=== PATIENT | male | born 1990 | race Caucasian/White ===

== ENCOUNTER 2021-09-30 20:34 | Inpatient (IN) ==
[2021-10-01] MEDS: Acetaminophen 325 MG TABLET PO PRN ×3 (00:41→21:57)
[2021-10-01 01:12] LABS: Bacteria,Urine Few per hpf (None-Few); Bilirubin,Urine Negative (Negative); Blood,Urine Moderate (Negative); Clarity,Urine Clear (Clear); Color,Urine Light-Yellow (Yellow); Glucose,Urine (UA) Normal (Normal); Ketones,Urine Negative (Negative); Leukocyte Esterase,Urine Negative (Negative); Mucus,Urine Few per lpf (None-Few); Nitrite,Urine Negative (Negative); Protein,Urine Negative (Neg-Trace); RBC,Urine 0-3 per hpf (0-3); Urobilinogen,Urine Normal (Normal); WBC,Urine 0-3 per hpf (0-3)
[2021-10-01 01:16] LABS: Eosinophils % 0.1 %; Hematocrit 19.5 % (37.5-50.1); Hemoglobin 6.6 g/dL (12.9-16.9); Immature Granulocytes % 0.7 % (0-4); Immature Platelets 7.4 % (1.1-6.1); Lymphocytes # 0.3 K/mcL (0.6-4.6); Lymphocytes % 4.2 %; Mean Corpuscular HGB Conc 33.8 g/dL (31.6-35.5); Mean Corpuscular Hemoglobin 28.3 pg (28.0-33.3); Mean Corpuscular Volume 83.7 fL (83.0-100.0); Mean Platelet Volume 11.1 fL (9.4-12.4); Monocytes # 0.5 K/mcL (0.0-1.3); Monocytes % 7.1 %; Neutrophils # 6.1 K/mcL (1.6-8.9); Red Blood Count 2.33 M/mcL (4.19-5.50); Red Cell Distribution Width 15.9 % (11.5-14.5); Segmented Neutrophils % 87.9 %; White Blood Count 6.9 K/mcL (4.3-11.1)
[2021-10-01 01:18] LABS: Platelet Count 82 K/mcL (140-400)
[2021-10-01 01:20] LABS: Sodium, Urine 33.5 mEq/L
[2021-10-01 01:30] LABS: Creatinine,Urine 41 mg/dL
[2021-10-01 01:34] LABS: Alanine Aminotransferase 56 Units/L (7-52); Albumin 2.5 g/dL (3.5-5.7); Albumin/Globulin Ratio 0.5 (1.1-2.2); Alkaline Phosphatase 75 Units/L (34-104); Aspartate Amino Transferase 85 Units/L (13-39); BUN/Creatinine Ratio 32 (6-26); Bilirubin,Total 0.8 mg/dL (0.3-1.0); Blood Urea Nitrogen 26 mg/dL (6-20); Calcium 7.7 mg/dL (8.6-10.3); Carbon Dioxide 27 mEq/L (23-29); Chloride 87 mEq/L (98-107); Globulin 4.6 g/dL (2.4-3.5); Glucose 90 mg/dL (70-105); Osmolality,Calculated 260 (280-300); Potassium 2.9 mEq/L (3.5-5.1); Sodium 123 mEq/L (136-145); Total Protein 7.1 g/dL (6.4-8.9); eGFR For African Americans > 60 (> 60); eGFR For Non-African Americans > 60 (> 60)
[2021-10-01 01:34] LABS: Amphetamine Screen,Urine Negative ng/mL (Cutoff=1000); Barbiturate Screen,Urine Negative ng/mL (Cutoff=200); Benzodiazepines Screen,Urine Negative ng/mL (Cutoff=200); Cannabinoid Screen,Urine Negative ng/mL (Cutoff = 50); Cocaine Screen,Urine Negative ng/mL (Cutoff= 300); Opiate Screen,Urine Positive ng/mL (Cutoff=300); Phencyclidine Screen,Urine Negative ng/mL (Cutoff=25)
[2021-10-01 01:35] LABS: INR 1.5; Prothrombin Time 16.6 Seconds (9.4-12.1)
[2021-10-01 01:37] LABS: Activated Partial Thrombo Time 26.2 Seconds (26.0-36.0)
[2021-10-01] MEDS ORDERED: Potassium Chloride Elixir 20 MEQ/15 ML UDC PO ONE (02:05)
[2021-10-01 02:06] LABS: Adenovirus Not Detected (Not Detect); Bordetella Pertussis Not Detected (Not Detect); Chlamydophila pneumoniae Not Detected (Not Detect); Coronavirus 229E Not Detected (Not Detect); Coronavirus HKU1 Not Detected (Not Detect); Coronavirus NL63 Not Detected (Not Detect); Coronavirus OC43 Not Detected (Not Detect); Human Metapneumovirus Not Detected (Not Detect); Human Rhinovirus/Enterovirus Not Detected (Not Detect); Influenza A Subtype 2009 H1 Not Detected (Not Detect); Influenza B Not Detected (Not Detect); Mycoplasma pneumoniae Not Detected (Not Detect); Parainfluenza Virus 1 Not Detected (Not Detect); Parainfluenza Virus 2 Not Detected (Not Detect); Parainfluenza Virus 3 Not Detected (Not Detect); Parainfluenza Virus 4 Not Detected (Not Detect); Respiratory Syncytial Virus Not Detected (Not Detect); SARS-CoV-2 Not Detected (Not Detect)
[2021-10-01] MEDS ORDERED: Ringers Solution, Lactated 1,000 ML IVC SCH (02:15)
[2021-10-01] MEDS ORDERED: 0.9 % Sodium Chloride 1,000 ML IVC SCH ×2 (02:15→05:17)
[2021-10-01 02:20] LABS: Magnesium 1.6 mg/dL (1.6-2.6); Phosphorous 1.7 mg/dL (2.7-4.5)
[2021-10-01] MEDS ORDERED: Perflutren Lipid Microsphere 1.3 ML in 0.9 % Sodium Chloride 8.7 ML IVP PRN ×2 (02:46→05:20)
[2021-10-01 02:57] LABS: Protein/Creatinine Ratio,Urine 0.32 mg/mg (0.00-0.20)
[2021-10-01] MEDS ORDERED: 0.9 % Sodium Chloride 250 ML ONE ×2 (02:57→12:23)
[2021-10-01] MEDS ORDERED: Piperacillin/Tazobactam 3.375 GM in 0.9 % Sodium Chloride Mini Bag 100 ML IVPB SCH ×2 (06:00→14:00)
[2021-10-01 07:41] LABS: Hemoglobin 6.6 g/dL (12.9-16.9)
[2021-10-01 07:43] LABS: Hematocrit 19.2 % (37.5-50.1); Immature Platelets 9.8 % (1.1-6.1); Mean Corpuscular HGB Conc 34.4 g/dL (31.6-35.5); Mean Corpuscular Hemoglobin 28.7 pg (28.0-33.3); Mean Corpuscular Volume 83.5 fL (83.0-100.0); Mean Platelet Volume 10.7 fL (9.4-12.4); Red Cell Distribution Width 15.8 % (11.5-14.5); Retculocyte # 0.01 M/mcL (0.05-0.10); Reticulocyte % 0.5 % (1.6-2.8); White Blood Count 7.2 K/mcL (4.3-11.1)
[2021-10-01 08:13] LABS: Platelet Count 68 K/mcL (140-400)
[2021-10-01] MEDS: Ipratropium/Albuterol Neb 3 ML IH SCH ×5 (08:15→23:29)
[2021-10-01 08:20] LABS: Immature Granulocytes % 2.4 % (0-4); Lymphocytes % 5.9 %
[2021-10-01 08:22] LABS: Basophils % 0.1 %; Eosinophils % 0.3 %; Lymphocytes # 0.4 K/mcL (0.6-4.6); Monocytes # 0.8 K/mcL (0.0-1.3); Monocytes % 11.2 %; Neutrophils # 5.8 K/mcL (1.6-8.9); Segmented Neutrophils % 80.1 %
[2021-10-01 08:32] LABS: BUN/Creatinine Ratio 37 (6-26); Blood Urea Nitrogen 22 mg/dL (6-20); Calcium 7.8 mg/dL (8.6-10.3); Carbon Dioxide 26 mEq/L (23-29); Chloride 90 mEq/L (98-107); Cholesterol 60 mg/dL (< 200); Ferritin 736 ng/mL (20-250); Glucose 121 mg/dL (70-105); HDL Cholesterol < 3 mg/dL (40-59); Iron < 10 mcg/dL (65-175); Magnesium 1.8 mg/dL (1.6-2.6); Osmolality,Calculated 261 (280-300); Phosphorous 2.5 mg/dL (2.7-4.5); Potassium 3.8 mEq/L (3.5-5.1); Sodium 123 mEq/L (136-145); Thyroid Stimulating Hormone 1.672 mcIU/mL (0.340-5.600); Transferrin 158 mg/dL (203-362); Triglycerides 144 mg/dL (< 150); eGFR For African Americans > 60 (> 60); eGFR For Non-African Americans > 60 (> 60)
[2021-10-01 09:11] LABS: C-Reactive Protein 191 mg/L (Less than 10)
[2021-10-01 09:20] LABS: Mean Platelet Volume 11.2 fL (9.4-12.4)
[2021-10-01 09:31] LABS: INR 1.4; Prothrombin Time 15.8 Seconds (9.4-12.1)
[2021-10-01 09:33] LABS: Activated Partial Thrombo Time 30.7 Seconds (26.0-36.0)
[2021-10-01 10:04] LABS: Folate 5.2 ng/mL (3.0-16.0)
[2021-10-01 10:05] LABS: Vitamin B12 440 pg/mL (250-1100)
[2021-10-01 10:08] LABS: BUN/Creatinine Ratio 33 (6-26); Blood Urea Nitrogen 20 mg/dL (6-20); Calcium 7.6 mg/dL (8.6-10.3); Carbon Dioxide 27 mEq/L (23-29); Chloride 90 mEq/L (98-107); Glucose 110 mg/dL (70-105); Osmolality,Calculated 259 (280-300); Potassium 3.3 mEq/L (3.5-5.1); Sodium 123 mEq/L (136-145); eGFR For African Americans > 60 (> 60); eGFR For Non-African Americans > 60 (> 60)
[2021-10-01 10:21] LABS: Hematocrit 17.9 % (37.5-50.1); Immature Platelets 11.3 % (1.1-6.1); Mean Corpuscular HGB Conc 33.5 g/dL (31.6-35.5); Mean Corpuscular Hemoglobin 28.4 pg (28.0-33.3); Mean Corpuscular Volume 84.8 fL (83.0-100.0); Mean Platelet Volume 11.4 fL (9.4-12.4); Red Blood Count 2.11 M/mcL (4.19-5.50); Red Cell Distribution Width 15.9 % (11.5-14.5); White Blood Count 6.2 K/mcL (4.3-11.1)
[2021-10-01 11:10] LABS: Hepatitis B Surface Antigen Nonreactive (Nonreactive)
[2021-10-01 11:39] LABS: HIV-1&2 Antibody & p24 Ag Nonreactive (Nonreactive)
[2021-10-01 11:40] LABS: Hepatitis A Antibody IgM Nonreactive (Nonreactive); Hepatitis B Core IgM Nonreactive (Nonreactive)
[2021-10-01 11:48] LABS: Complement C3 123 mg/dL (87-200)
[2021-10-01] MEDS ORDERED: Naloxone 0.4 MG/ML INJ ONE ×2 (12:07→13:15)
[2021-10-01] MEDS: Naloxone 0.4 MG/ML INJ IVP PRN (12:16)
[2021-10-01] MEDS ORDERED: Naloxone 0.4 MG/ML INJ IVP ONE (13:19)
[2021-10-01] MEDS ORDERED: Ringers Solution, Lactated 500 ML IVC ONE (14:33)
[2021-10-01 14:55] LABS: mecA Methicillin-Resist Gene DETECTED (Not Detect)
[2021-10-01 14:56] LABS: Acinetobacter baumannii by PCR Not Detected (Not Detect); Candida albicans by PCR Not Detected (Not Detect); Candida glabrata by PCR Not Detected (Not Detect); Candida krusei by PCR Not Detected (Not Detect); Candida parapsilosis by PCR Not Detected (Not Detect); Candida tropicalis by PCR Not Detected (Not Detect); Enterobacter cloacae Cmplx PCR Not Detected (Not Detect); Enterobacteriaceae by PCR Not Detected (Not Detect); Enterococcus by PCR Not Detected (Not Detect); Escherichia coli by PCR Not Detected (Not Detect); Klebsiella oxytoca by PCR Not Detected (Not Detect); Klebsiella pneumoniae by PCR Not Detected (Not Detect); Proteus by PCR Not Detected (Not Detect); Pseudomonas aeruginosa by PCR Not Detected (Not Detect); Serratia marcescens by PCR Not Detected (Not Detect); Staphylococcus aureus by PCR DETECTED (Not Detect); Streptococcus agalactiae(B)PCR Not Detected (Not Detect); Streptococcus by PCR Not Detected (Not Detect); Streptococcus pneumoniae PCR Not Detected (Not Detect); Streptococcus pyogenes (A) PCR Not Detected (Not Detect)
[2021-10-01 16:30] LABS: Creatinine,Urine 83 mg/dL; Microalbum/Creatinine Ratio,Ur 17 mcg/mg (Less than 30); Microalbumin,Urine 14 mg/L
[2021-10-01] MEDS ORDERED: Ringers Solution, Lactated 1,000 ML IVC ONE (17:56)
[2021-10-01 17:58] LABS: Hemoglobin 6.8 g/dL (12.9-16.9)
[2021-10-01 18:19] LABS: BUN/Creatinine Ratio 26 (6-26); Blood Urea Nitrogen 19 mg/dL (6-20); Calcium 7.3 mg/dL (8.6-10.3); Carbon Dioxide 27 mEq/L (23-29); Chloride 91 mEq/L (98-107); Glucose 116 mg/dL (70-105); Osmolality,Calculated 261 (280-300); Potassium 3.3 mEq/L (3.5-5.1); Sodium 124 mEq/L (136-145); Troponin I 0.03 ng/mL (< 0.04); eGFR For African Americans > 60 (> 60); eGFR For Non-African Americans > 60 (> 60)
[2021-10-01] MEDS ORDERED: 0.9 % Sodium Chloride 250 ML IVC SCH (19:30)
[2021-10-01] MEDS ORDERED: Magnesium Sulfate 1 GM/102 ML PIGGYBACK IVPB ONE (20:51)
[2021-10-01] MEDS ORDERED: Potassium Phosphate 44 MEQ in 0.9 % Sodium Chloride 250 ML IVPB ONE (21:00)
[2021-10-01] MEDS ORDERED: Cyanocobalamin (B-12) 1,000 MCG/ML VIAL IM ONE (21:18)
[2021-10-01 22:00] LABS: Mean Platelet Volume 10.5 fL (9.4-12.4)
[2021-10-01] MEDS: Folic Acid 1 MG TABLET PO SCH (22:15)
[2021-10-02] MEDS: Piperacillin/Tazobactam 3.375 GM in 0.9 % Sodium Chloride Mini Bag 100 ML IVPB SCH ×3 (00:01→15:28)
[2021-10-02] MEDS ORDERED: 0.9 % Sodium Chloride 1,000 ML ONE (00:25)
[2021-10-02] MEDS ORDERED: Morphine Sulfate 2 MG/ML SYRINGE IVP ONE ×2 (01:07→01:08)
[2021-10-02] MEDS ORDERED: *HR* LORazepam 0.5 MG TABLET PO ONE (01:08)
[2021-10-02 01:16] LABS: Hematocrit 22.1 % (37.5-50.1); Hemoglobin 7.7 g/dL (12.9-16.9)
[2021-10-02] MEDS: Ipratropium/Albuterol Neb 3 ML IH SCH ×5 (03:45→20:28)
[2021-10-02 04:17] LABS: Basophils % 0.1 %; Eosinophils % 0.4 %; Hematocrit 22.7 % (37.5-50.1); Hemoglobin 7.8 g/dL (12.9-16.9); Immature Granulocytes % 2.2 % (0-4); Immature Reticulocyte % 20.9 % (11.0-38.0); Lymphocytes # 0.7 K/mcL (0.6-4.6); Lymphocytes % 8.9 %; Mean Corpuscular HGB Conc 34.4 g/dL (31.6-35.5); Mean Corpuscular Hemoglobin 28.7 pg (28.0-33.3); Mean Corpuscular Volume 83.5 fL (83.0-100.0); Mean Platelet Volume 10.5 fL (9.4-12.4); Mean Platelet Volume 10.9 fL (9.4-12.4); Monocytes # 0.9 K/mcL (0.0-1.3); Red Blood Count 2.72 M/mcL (4.19-5.50); Red Cell Distribution Width 15.4 % (11.5-14.5); Retculocyte # 0.01 M/mcL (0.05-0.10); Reticulocyte % 0.5 % (1.6-2.8); Segmented Neutrophils % 76.4 %; White Blood Count 7.7 K/mcL (4.3-11.1)
[2021-10-02 04:18] LABS: Neutrophils # 5.9 K/mcL (1.6-8.9); Platelet Count 73 K/mcL (140-400)
[2021-10-02 04:30] LABS: INR 1.4; Prothrombin Time 15.3 Seconds (9.4-12.1)
[2021-10-02 04:32] LABS: Activated Partial Thrombo Time 29.4 Seconds (26.0-36.0)
[2021-10-02 04:39] LABS: Alanine Aminotransferase 33 Units/L (7-52); Albumin 1.9 g/dL (3.5-5.7); Albumin/Globulin Ratio 0.5 (1.1-2.2); Alkaline Phosphatase 63 Units/L (34-104); Aspartate Amino Transferase 36 Units/L (13-39); BUN/Creatinine Ratio 18 (6-26); Bilirubin,Total 0.8 mg/dL (0.3-1.0); Blood Urea Nitrogen 11 mg/dL (6-20); Carbon Dioxide 26 mEq/L (23-29); Chloride 94 mEq/L (98-107); Globulin 3.7 g/dL (2.4-3.5); Glucose 95 mg/dL (70-105); Lactate Dehydrogenase 258 Units/L (140-271); Osmolality,Calculated 263 (280-300); Potassium 3.6 mEq/L (3.5-5.1); Sodium 127 mEq/L (136-145); Total Protein 5.6 g/dL (6.4-8.9); eGFR For African Americans > 60 (> 60); eGFR For Non-African Americans > 60 (> 60)
[2021-10-02] MEDS ORDERED: Albumin 25% 25gram/100mL 25 GM/100 ML IV.SOLN IVPB ONE (07:11)
[2021-10-02] MEDS: Folic Acid 1 MG TABLET PO SCH (07:43)
[2021-10-02 09:55] LABS: Hepatitis C Virus Antibody Reactive (Nonreactive)
[2021-10-02] MEDS: *HR* OxyCODONE Immed Rel 5 MG TABLET PO PRN (15:27)
[2021-10-02] MEDS: *HR* LORazepam 0.5 MG TABLET PO PRN (15:28)
[2021-10-02] MEDS: Vancomycin 1,250 MG/262.5 ML IV.SOLN IVPB SCH (18:14)
[2021-10-03] MEDS: Ipratropium/Albuterol Neb 3 ML IH SCH ×4 (00:04→11:36)
[2021-10-03] MEDS: Piperacillin/Tazobactam 3.375 GM in 0.9 % Sodium Chloride Mini Bag 100 ML IVPB SCH ×2 (00:20→07:51)
[2021-10-03 02:52] LABS: Immature Reticulocyte % 42.8 % (11.0-38.0); Retculocyte # 0.04 M/mcL (0.05-0.10); Reticulocyte % 1.2 % (1.6-2.8)
[2021-10-03 02:53] LABS: Basophils % 0.4 %; Eosinophils % 0.2 %; Hematocrit 24.6 % (37.5-50.1); Hemoglobin 8.4 g/dL (12.9-16.9); Immature Granulocytes % 2.9 % (0-4); Mean Corpuscular HGB Conc 34.1 g/dL (31.6-35.5); Mean Corpuscular Hemoglobin 29.4 pg (28.0-33.3); Mean Platelet Volume 10.9 fL (9.4-12.4); Monocytes % 9.6 %; Platelet Count 101 K/mcL (140-400); Red Blood Count 2.86 M/mcL (4.19-5.50); Red Cell Distribution Width 16.1 % (11.5-14.5); Segmented Neutrophils % 76.9 %; White Blood Count 10.2 K/mcL (4.3-11.1)
[2021-10-03 02:54] LABS: Mean Platelet Volume 11.4 fL (9.4-12.4)
[2021-10-03 02:56] LABS: Neutrophils # 7.8 K/mcL (1.6-8.9)
[2021-10-03 03:09] LABS: INR 1.5; Prothrombin Time 16.2 Seconds (9.4-12.1)
[2021-10-03 03:12] LABS: Alanine Aminotransferase 25 Units/L (7-52); Albumin 2.2 g/dL (3.5-5.7); Albumin/Globulin Ratio 0.6 (1.1-2.2); Alkaline Phosphatase 65 Units/L (34-104); Aspartate Amino Transferase 28 Units/L (13-39); BUN/Creatinine Ratio 14 (6-26); Bilirubin,Total 1.1 mg/dL (0.3-1.0); Blood Urea Nitrogen 8 mg/dL (6-20); Calcium 7.3 mg/dL (8.6-10.3); Carbon Dioxide 24 mEq/L (23-29); Chloride 95 mEq/L (98-107); Globulin 3.6 g/dL (2.4-3.5); Glucose 103 mg/dL (70-105); Lactate Dehydrogenase 286 Units/L (140-271); Osmolality,Calculated 263 (280-300); Potassium 3.1 mEq/L (3.5-5.1); Sodium 127 mEq/L (136-145); Total Protein 5.8 g/dL (6.4-8.9); eGFR For African Americans > 60 (> 60); eGFR For Non-African Americans > 60 (> 60)
[2021-10-03] MEDS: Vancomycin 1,250 MG/262.5 ML IV.SOLN IVPB SCH ×3 (03:17→18:36)
[2021-10-03] MEDS ORDERED: Potassium Chloride Elixir 20 MEQ/15 ML UDC PO ONE (07:20)
[2021-10-03] MEDS: Folic Acid 1 MG TABLET PO SCH (07:52)
[2021-10-03] MEDS ORDERED: Cyanocobalamin (B-12) 1,000 MCG/ML VIAL IM ONE (10:58)
[2021-10-03] MEDS ORDERED: Isovue-370 500 ML BOTTLE IVP ONE ×2 (11:49→12:10)
[2021-10-03] MEDS ORDERED: Lidocaine Viscous Oral Soln 15 ML SOLUTION MM PRN (13:15)
[2021-10-03] MEDS ORDERED: 0.9 % Sodium Chloride 500 ML IVC ONE (13:15)
[2021-10-03] MEDS ORDERED: Lidocaine -MPF 2% 5 ML VIAL ONE (13:18)
[2021-10-03] MEDS ORDERED: Lidocaine Viscous Oral Soln 15 ML SOLUTION ONE (13:53)
[2021-10-03] MEDS ORDERED: Ipratropium/Albuterol Neb 3 ML IH PRN (14:28)
[2021-10-03] MEDS: Naloxone 0.4 MG/ML INJ IVP PRN (17:03)
[2021-10-03] MEDS ORDERED: Naloxone 2 MG in 0.9 % Sodium Chloride 500 ML IVC SCH (17:15)
[2021-10-03] MEDS: Acetaminophen 325 MG TABLET PO PRN (19:48)
[2021-10-03] MEDS: Melatonin 3 MG TABLET PO PRN (22:33)
[2021-10-03] MEDS: Ondansetron ODT 4 MG TAB.RAPDIS SL PRN (22:33)
[2021-10-03] MEDS: *HR* LORazepam 0.5 MG TABLET PO PRN (22:34)
[2021-10-04] MEDS: *HR* OxyCODONE Immed Rel 5 MG TABLET PO PRN ×2 (01:28→07:44)
[2021-10-04] MEDS: Acetaminophen 325 MG TABLET PO PRN (01:28)
[2021-10-04] MEDS: Vancomycin 1,250 MG/262.5 ML IV.SOLN IVPB SCH ×3 (01:36→17:58)
[2021-10-04 03:31] LABS: Basophils # 0.1 K/mcL (0.0-0.2); Basophils % 0.4 %; Eosinophils % 0.1 %; Hematocrit 22.1 % (37.5-50.1); Hemoglobin 7.6 g/dL (12.9-16.9); Immature Granulocytes % 4.1 % (0-4); Lymphocytes # 1.2 K/mcL (0.6-4.6); Lymphocytes % 10.4 %; Mean Corpuscular HGB Conc 34.4 g/dL (31.6-35.5); Mean Corpuscular Hemoglobin 29.9 pg (28.0-33.3); Monocytes # 1.2 K/mcL (0.0-1.3); Monocytes % 10.2 %; Neutrophils # 8.8 K/mcL (1.6-8.9); Platelet Count 147 K/mcL (140-400); Red Blood Count 2.54 M/mcL (4.19-5.50); Red Cell Distribution Width 16.5 % (11.5-14.5); Segmented Neutrophils % 74.8 %; White Blood Count 11.8 K/mcL (4.3-11.1)
[2021-10-04 03:33] LABS: Immature Reticulocyte % 34.8 % (11.0-38.0); Retculocyte # 0.06 M/mcL (0.05-0.10); Reticulocyte % 2.2 % (1.6-2.8)
[2021-10-04 03:41] LABS: INR 1.4; Prothrombin Time 15.1 Seconds (9.4-12.1)
[2021-10-04 03:42] LABS: Activated Partial Thrombo Time 22.4 Seconds (26.0-36.0)
[2021-10-04 03:51] LABS: BUN/Creatinine Ratio 17 (6-26); Blood Urea Nitrogen 9 mg/dL (6-20); Calcium 7.1 mg/dL (8.6-10.3); Carbon Dioxide 23 mEq/L (23-29); Chloride 100 mEq/L (98-107); Glucose 90 mg/dL (70-105); Magnesium 1.8 mg/dL (1.6-2.6); Osmolality,Calculated 270 (280-300); Phosphorous 2.9 mg/dL (2.7-4.5); Potassium 3.3 mEq/L (3.5-5.1); Sodium 131 mEq/L (136-145); eGFR For African Americans > 60 (> 60); eGFR For Non-African Americans > 60 (> 60)
[2021-10-04 03:53] LABS: Alanine Aminotransferase 19 Units/L (7-52); Albumin 2.1 g/dL (3.5-5.7); Albumin/Globulin Ratio 0.6 (1.1-2.2); Alkaline Phosphatase 59 Units/L (34-104); Aspartate Amino Transferase 24 Units/L (13-39); BUN/Creatinine Ratio 17 (6-26); Bilirubin,Total 0.8 mg/dL (0.3-1.0); Blood Urea Nitrogen 9 mg/dL (6-20); Calcium 7.1 mg/dL (8.6-10.3); Carbon Dioxide 22 mEq/L (23-29); Chloride 100 mEq/L (98-107); Globulin 3.6 g/dL (2.4-3.5); Glucose 91 mg/dL (70-105); Lactate Dehydrogenase 288 Units/L (140-271); Osmolality,Calculated 272 (280-300); Potassium 3.3 mEq/L (3.5-5.1); Sodium 132 mEq/L (136-145); Total Protein 5.7 g/dL (6.4-8.9); eGFR For African Americans > 60 (> 60); eGFR For Non-African Americans > 60 (> 60)
[2021-10-04] MEDS: Folic Acid 1 MG TABLET PO SCH (07:45)
[2021-10-04] MEDS: Cyanocobalamin (B-12) 1,000 MCG TABLET PO SCH (07:45)
[2021-10-04] MEDS: *HR* LORazepam 0.5 MG TABLET PO PRN (07:45)
[2021-10-05] MEDS: Vancomycin 1,250 MG/262.5 ML IV.SOLN IVPB SCH ×3 (03:39→17:53)
[2021-10-05 05:08] LABS: Basophils # 0.1 K/mcL (0.0-0.2); Basophils % 0.5 %; Eosinophils % 0.2 %; Hematocrit 21.5 % (37.5-50.1); Hemoglobin 7.3 g/dL (12.9-16.9); Immature Granulocytes % 6.7 % (0-4); Immature Reticulocyte % 28.5 % (11.0-38.0); Lymphocytes # 1.7 K/mcL (0.6-4.6); Lymphocytes % 12.5 %; Mean Corpuscular Hemoglobin 29.8 pg (28.0-33.3); Mean Corpuscular Volume 87.8 fL (83.0-100.0); Mean Platelet Volume 10.3 fL (9.4-12.4); Monocytes # 1.5 K/mcL (0.0-1.3); Monocytes % 11.2 %; Platelet Count 170 K/mcL (140-400); Red Blood Count 2.45 M/mcL (4.19-5.50); Red Cell Distribution Width 16.9 % (11.5-14.5); Retculocyte # 0.08 M/mcL (0.05-0.10); Reticulocyte % 3.1 % (1.6-2.8); Segmented Neutrophils % 68.9 %; White Blood Count 13.6 K/mcL (4.3-11.1)
[2021-10-05 05:11] LABS: Neutrophils # 9.4 K/mcL (1.6-8.9)
[2021-10-05 05:16] LABS: INR 1.4; Prothrombin Time 15.1 Seconds (9.4-12.1)
[2021-10-05 05:18] LABS: Activated Partial Thrombo Time 28.2 Seconds (26.0-36.0)
[2021-10-05 05:27] LABS: Alanine Aminotransferase 15 Units/L (7-52); Albumin 1.9 g/dL (3.5-5.7); Albumin/Globulin Ratio 0.5 (1.1-2.2); Alkaline Phosphatase 48 Units/L (34-104); Aspartate Amino Transferase 22 Units/L (13-39); BUN/Creatinine Ratio 18 (6-26); Bilirubin,Total 0.6 mg/dL (0.3-1.0); Blood Urea Nitrogen 10 mg/dL (6-20); Carbon Dioxide 23 mEq/L (23-29); Chloride 101 mEq/L (98-107); Globulin 3.7 g/dL (2.4-3.5); Glucose 89 mg/dL (70-105); Lactate Dehydrogenase 247 Units/L (140-271); Osmolality,Calculated 267 (280-300); Potassium 3.1 mEq/L (3.5-5.1); Sodium 129 mEq/L (136-145); Total Protein 5.6 g/dL (6.4-8.9); eGFR For African Americans > 60 (> 60); eGFR For Non-African Americans > 60 (> 60)
[2021-10-05 05:38] LABS: Platelet Estimate Normal (Normal); Toxic Granulation Present (Not Present)
[2021-10-05] MEDS: Folic Acid 1 MG TABLET PO SCH (09:12)
[2021-10-05] MEDS: Cyanocobalamin (B-12) 1,000 MCG TABLET PO SCH (09:12)
[2021-10-05] MEDS: *HR* LORazepam 0.5 MG TABLET PO PRN ×2 (09:27→19:32)
[2021-10-05] MEDS: *HR* OxyCODONE Immed Rel 5 MG TABLET PO PRN ×2 (11:20→17:50)
[2021-10-05] MEDS: Acetaminophen 325 MG TABLET PO PRN (16:04)
[2021-10-06] MEDS: Acetaminophen 325 MG TABLET PO PRN ×2 (00:33→12:14)
[2021-10-06] MEDS: Vancomycin 1,250 MG/262.5 ML IV.SOLN IVPB SCH ×2 (01:03→10:36)
[2021-10-06 02:05] LABS: Basophils % 0.3 %; Eosinophils % 0.2 %; Hematocrit 25.8 % (37.5-50.1); Hemoglobin 8.2 g/dL (12.9-16.9); Immature Reticulocyte % 29.6 % (11.0-38.0); Lymphocytes % 12.9 %; Mean Corpuscular HGB Conc 31.8 g/dL (31.6-35.5); Mean Corpuscular Hemoglobin 28.2 pg (28.0-33.3); Mean Corpuscular Volume 88.7 fL (83.0-100.0); Mean Platelet Volume 10.4 fL (9.4-12.4); Monocytes # 1.3 K/mcL (0.0-1.3); Monocytes % 8.5 %; Neutrophils # 10.9 K/mcL (1.6-8.9); Platelet Count 246 K/mcL (140-400); Red Blood Count 2.91 M/mcL (4.19-5.50); Reticulocyte % 3.6 % (1.6-2.8); Segmented Neutrophils % 70.1 %; White Blood Count 15.6 K/mcL (4.3-11.1)
[2021-10-06 02:11] LABS: Basophils # 0.1 K/mcL (0.0-0.2)
[2021-10-06 02:13] LABS: INR 1.3
[2021-10-06 02:14] LABS: Activated Partial Thrombo Time 28.3 Seconds (26.0-36.0)
[2021-10-06 02:26] LABS: Alanine Aminotransferase 18 Units/L (7-52); Albumin 2.2 g/dL (3.5-5.7); Albumin/Globulin Ratio 0.5 (1.1-2.2); Alkaline Phosphatase 60 Units/L (34-104); Aspartate Amino Transferase 38 Units/L (13-39); BUN/Creatinine Ratio 16 (6-26); Bilirubin,Total 0.5 mg/dL (0.3-1.0); Blood Urea Nitrogen 10 mg/dL (6-20); Calcium 7.3 mg/dL (8.6-10.3); Carbon Dioxide 22 mEq/L (23-29); Chloride 101 mEq/L (98-107); Globulin 4.4 g/dL (2.4-3.5); Glucose 78 mg/dL (70-105); Lactate Dehydrogenase 334 Units/L (140-271); Osmolality,Calculated 270 (280-300); Potassium 3.9 mEq/L (3.5-5.1); Sodium 131 mEq/L (136-145); Total Protein 6.6 g/dL (6.4-8.9); eGFR For African Americans > 60 (> 60); eGFR For Non-African Americans > 60 (> 60)
[2021-10-06 04:27] LABS: Alpha 2 Globulin (PEP) 0.89 g/dL (0.48-1.05); Alpha 2 Globulin (PEP) 0.94 g/dL (0.48-1.05); Beta Globulin (PEP) 0.85 g/dL (0.48-1.10); Beta Globulin (PEP) 0.93 g/dL (0.48-1.10)
[2021-10-06] MEDS: Cyanocobalamin (B-12) 1,000 MCG TABLET PO SCH (08:00)
[2021-10-06] MEDS: Folic Acid 1 MG TABLET PO SCH (08:00)
[2021-10-06 09:28] LABS: Immunoglobulin G 2259 mg/dL (768-1632); Immunoglobulin M 133 mg/dL (35-263)
[2021-10-06 09:33] LABS: Immunoglobulin A 339 mg/dL (68-408); Immunoglobulin G 2209 mg/dL (768-1632); Immunoglobulin M 139 mg/dL (35-263)
[2021-10-06 09:48] LABS: IFE Reflexed IFE Done
[2021-10-06 09:49] LABS: IFE Reflexed IFE Done
[2021-10-06] MEDS: *HR* OxyCODONE Immed Rel 5 MG TABLET PO PRN (10:36)
[2021-10-06] MEDS: Ondansetron ODT 4 MG TAB.RAPDIS SL PRN (16:10)
[2021-10-06] MEDS: *HR* LORazepam 0.5 MG TABLET PO PRN (16:15)
[2021-10-06] MEDS ORDERED: *HR* Metoprolol 5 MG/5 ML VIAL IVP ONE ×2 (18:27→21:55)
[2021-10-06 19:26] LABS: ABG Base Excess 1 mEq/L (-2 to 3); ABG HCO3 21 mEq/L (21-27); ABG Oxygen Saturation 90 % (95-98); ABG PCO2 21 mmHg (35-45); ABG PO2 47 mmHg (85-104); ABG TCO2 22 mEq/L (20-26)
[2021-10-07 02:39] LABS: Basophils # 0.1 K/mcL (0.0-0.2); Basophils % 0.7 %; Eosinophils % 0.1 %; Hematocrit 27.6 % (37.5-50.1); Hemoglobin 8.8 g/dL (12.9-16.9); Immature Granulocytes % 5.5 % (0-4); Lymphocytes # 2.3 K/mcL (0.6-4.6); Mean Corpuscular HGB Conc 31.9 g/dL (31.6-35.5); Mean Corpuscular Hemoglobin 28.4 pg (28.0-33.3); Monocytes # 1.6 K/mcL (0.0-1.3); Monocytes % 8.5 %; Platelet Count 285 K/mcL (140-400); Red Cell Distribution Width 17.2 % (11.5-14.5); Segmented Neutrophils % 73.2 %; White Blood Count 19.1 K/mcL (4.3-11.1)
[2021-10-07 02:48] LABS: BUN/Creatinine Ratio 19 (6-26); Blood Urea Nitrogen 12 mg/dL (6-20); Calcium 7.4 mg/dL (8.6-10.3); Carbon Dioxide 22 mEq/L (23-29); Chloride 101 mEq/L (98-107); Glucose 87 mg/dL (70-105); Osmolality,Calculated 269 (280-300); Potassium 4.2 mEq/L (3.5-5.1); Sodium 130 mEq/L (136-145); eGFR For African Americans > 60 (> 60); eGFR For Non-African Americans > 60 (> 60)
[2021-10-07 03:29] LABS: Hypochromasia Present (Not Present); Platelet Estimate Normal (Normal); Toxic Granulation Present (Not Present)
[2021-10-07] MEDS: *HR* LORazepam 0.5 MG TABLET PO PRN ×2 (04:43→14:52)
[2021-10-07] MEDS: Folic Acid 1 MG TABLET PO SCH (08:43)
[2021-10-07] MEDS: Cyanocobalamin (B-12) 1,000 MCG TABLET PO SCH (08:43)
[2021-10-07] MEDS: *HR* OxyCODONE Immed Rel 5 MG TABLET PO PRN ×2 (12:06→18:38)
[2021-10-07 17:02] LABS: ABG Base Excess 0 mEq/L (-2 to 3); ABG HCO3 22 mEq/L (21-27); ABG Oxygen Saturation 93 % (95-98); ABG PCO2 24 mmHg (35-45); ABG PH 7.57 pH Units (7.32-7.45); ABG PO2 55 mmHg (85-104); ABG TCO2 23 mEq/L (20-26)
[2021-10-07] MEDS: Acetaminophen 325 MG TABLET PO PRN (17:13)
[2021-10-08] MEDS: Acetaminophen 325 MG TABLET PO PRN ×2 (00:22→18:12)
[2021-10-08] MEDS: Melatonin 3 MG TABLET PO PRN (00:24)
[2021-10-08 02:54] LABS: Basophils # 0.1 K/mcL (0.0-0.2); Basophils % 0.6 %; Eosinophils % 0.2 %; Hematocrit 23.7 % (37.5-50.1); Hemoglobin 7.7 g/dL (12.9-16.9); Immature Granulocytes % 4.1 % (0-4); Lymphocytes # 2.1 K/mcL (0.6-4.6); Lymphocytes % 10.4 %; Mean Corpuscular HGB Conc 32.5 g/dL (31.6-35.5); Mean Corpuscular Hemoglobin 28.9 pg (28.0-33.3); Mean Corpuscular Volume 89.1 fL (83.0-100.0); Mean Platelet Volume 9.8 fL (9.4-12.4); Monocytes # 1.7 K/mcL (0.0-1.3); Monocytes % 8.5 %; Neutrophils # 15.1 K/mcL (1.6-8.9); Platelet Count 317 K/mcL (140-400); Red Blood Count 2.66 M/mcL (4.19-5.50); Red Cell Distribution Width 16.8 % (11.5-14.5); Segmented Neutrophils % 76.2 %; White Blood Count 19.8 K/mcL (4.3-11.1)
[2021-10-08 03:06] LABS: BUN/Creatinine Ratio 18 (6-26); Blood Urea Nitrogen 10 mg/dL (6-20); Calcium 7.1 mg/dL (8.6-10.3); Carbon Dioxide 20 mEq/L (23-29); Chloride 101 mEq/L (98-107); Glucose 121 mg/dL (70-105); Osmolality,Calculated 264 (280-300); Sodium 127 mEq/L (136-145); Vancomycin,Trough 11 mcg/mL (5-10); eGFR For African Americans > 60 (> 60); eGFR For Non-African Americans > 60 (> 60)
[2021-10-08] MEDS ORDERED: 0.9 % Sodium Chloride 250 ML ONE (04:15)
[2021-10-08] MEDS: Cyanocobalamin (B-12) 1,000 MCG TABLET PO SCH (08:08)
[2021-10-08] MEDS: Folic Acid 1 MG TABLET PO SCH (08:08)
[2021-10-08] MEDS: *HR* OxyCODONE Immed Rel 5 MG TABLET PO PRN ×2 (12:01→16:41)
[2021-10-08 12:39] LABS: Creatine Kinase 36 Units/L (30-223)
[2021-10-08] MEDS: *HR* LORazepam 0.5 MG TABLET PO PRN (14:39)
[2021-10-08] MEDS: DAPTOmycin 500 MG in 0.9 % Sodium Chloride 100 ML IVPB SCH (14:40)
[2021-10-09] MEDS: *HR* OxyCODONE Immed Rel 5 MG TABLET PO PRN ×3 (05:25→19:40)
[2021-10-09 05:47] LABS: Basophils # 0.1 K/mcL (0.0-0.2); Basophils % 0.5 %; Hematocrit 24.4 % (37.5-50.1); Hemoglobin 7.9 g/dL (12.9-16.9); Immature Granulocytes % 3.7 % (0-4); Immature Platelets 10.1 % (1.1-6.1); Lymphocytes # 1.9 K/mcL (0.6-4.6); Lymphocytes % 9.5 %; Mean Corpuscular HGB Conc 32.4 g/dL (31.6-35.5); Mean Corpuscular Hemoglobin 28.8 pg (28.0-33.3); Mean Corpuscular Volume 89.1 fL (83.0-100.0); Mean Platelet Volume 11.3 fL (9.4-12.4); Monocytes # 1.6 K/mcL (0.0-1.3); Monocytes % 8.2 %; Neutrophils # 15.4 K/mcL (1.6-8.9); Platelet Count 311 K/mcL (140-400); Red Blood Count 2.74 M/mcL (4.19-5.50); Red Cell Distribution Width 16.8 % (11.5-14.5); Segmented Neutrophils % 78.1 %; White Blood Count 19.7 K/mcL (4.3-11.1)
[2021-10-09 06:09] LABS: BUN/Creatinine Ratio 20 (6-26); Blood Urea Nitrogen 11 mg/dL (6-20); Calcium 7.6 mg/dL (8.6-10.3); Carbon Dioxide 20 mEq/L (23-29); Chloride 102 mEq/L (98-107); Glucose 89 mg/dL (70-105); Osmolality,Calculated 269 (280-300); Potassium 3.9 mEq/L (3.5-5.1); Sodium 130 mEq/L (136-145); eGFR For African Americans > 60 (> 60); eGFR For Non-African Americans > 60 (> 60)
[2021-10-09] MEDS: Cyanocobalamin (B-12) 1,000 MCG TABLET PO SCH (08:35)
[2021-10-09] MEDS: Folic Acid 1 MG TABLET PO SCH (08:35)
[2021-10-09] MEDS: *HR* LORazepam 0.5 MG TABLET PO PRN ×2 (09:23→18:59)
[2021-10-09] MEDS: DAPTOmycin 500 MG in 0.9 % Sodium Chloride 100 ML IVPB SCH (14:33)
[2021-10-09] MEDS: Acetaminophen 325 MG TABLET PO PRN (22:55)
[2021-10-10 02:51] LABS: Basophils # 0.1 K/mcL (0.0-0.2); Basophils % 0.5 %; Hematocrit 22.4 % (37.5-50.1); Hemoglobin 6.9 g/dL (12.9-16.9); Immature Granulocytes % 2.9 % (0-4); Lymphocytes # 2.2 K/mcL (0.6-4.6); Mean Corpuscular HGB Conc 30.8 g/dL (31.6-35.5); Mean Corpuscular Hemoglobin 28.8 pg (28.0-33.3); Mean Corpuscular Volume 93.3 fL (83.0-100.0); Mean Platelet Volume 9.8 fL (9.4-12.4); Monocytes # 1.8 K/mcL (0.0-1.3); Monocytes % 10.8 %; Neutrophils # 12.2 K/mcL (1.6-8.9); Platelet Count 406 K/mcL (140-400); Red Cell Distribution Width 16.8 % (11.5-14.5); Segmented Neutrophils % 72.8 %; White Blood Count 16.8 K/mcL (4.3-11.1)
[2021-10-10 03:19] LABS: Alanine Aminotransferase 15 Units/L (7-52); Albumin 1.8 g/dL (3.5-5.7); Albumin/Globulin Ratio 0.5 (1.1-2.2); Alkaline Phosphatase 47 Units/L (34-104); Aspartate Amino Transferase 35 Units/L (13-39); BUN/Creatinine Ratio 22 (6-26); Bilirubin,Total 0.3 mg/dL (0.3-1.0); Blood Urea Nitrogen 12 mg/dL (6-20); Calcium 7.3 mg/dL (8.6-10.3); Carbon Dioxide 18 mEq/L (23-29); Chloride 105 mEq/L (98-107); Glucose 88 mg/dL (70-105); Osmolality,Calculated 269 (280-300); Potassium 4.3 mEq/L (3.5-5.1); Sodium 130 mEq/L (136-145); Total Protein 5.8 g/dL (6.4-8.9); eGFR For African Americans > 60 (> 60); eGFR For Non-African Americans > 60 (> 60)
[2021-10-10] MEDS: *HR* OxyCODONE Immed Rel 5 MG TABLET PO PRN ×3 (05:08→23:01)
[2021-10-10] MEDS: Cyanocobalamin (B-12) 1,000 MCG TABLET PO SCH (09:13)
[2021-10-10] MEDS: Folic Acid 1 MG TABLET PO SCH (09:13)
[2021-10-10] MEDS: *HR* LORazepam 0.5 MG TABLET PO PRN (09:19)
[2021-10-10 09:25] LABS: Hematocrit 24.8 % (37.5-50.1); Hemoglobin 7.8 g/dL (12.9-16.9)
[2021-10-10] MEDS ORDERED: *HR* Metoprolol 5 MG/5 ML VIAL IVP ONE (12:18)
[2021-10-10] MEDS: DAPTOmycin 500 MG in 0.9 % Sodium Chloride 100 ML IVPB SCH (14:12)
[2021-10-10] MEDS: Acetaminophen 325 MG TABLET PO PRN ×2 (16:20→23:01)
[2021-10-10 18:08] LABS: Basophils # 0.1 K/mcL (0.0-0.2); Basophils % 0.4 %; Hematocrit 24.1 % (37.5-50.1); Hemoglobin 7.7 g/dL (12.9-16.9); Immature Granulocytes % 2.1 % (0-4); Lymphocytes % 12.5 %; Mean Corpuscular Hemoglobin 28.3 pg (28.0-33.3); Mean Corpuscular Volume 88.6 fL (83.0-100.0); Mean Platelet Volume 9.3 fL (9.4-12.4); Monocytes # 1.9 K/mcL (0.0-1.3); Monocytes % 12.1 %; Neutrophils # 11.5 K/mcL (1.6-8.9); Platelet Count 500 K/mcL (140-400); Red Blood Count 2.72 M/mcL (4.19-5.50); Red Cell Distribution Width 16.6 % (11.5-14.5); Segmented Neutrophils % 72.9 %; White Blood Count 15.8 K/mcL (4.3-11.1)
[2021-10-10 18:16] LABS: INR 1.4; Prothrombin Time 15.3 Seconds (9.4-12.1)
[2021-10-10 18:19] LABS: Activated Partial Thrombo Time 31.7 Seconds (26.0-36.0)
[2021-10-10 18:33] LABS: BUN/Creatinine Ratio 19 (6-26); Blood Urea Nitrogen 10 mg/dL (6-20); Calcium 7.4 mg/dL (8.6-10.3); Carbon Dioxide 23 mEq/L (23-29); Chloride 102 mEq/L (98-107); Chol/HDL Ratio 4.7 (0-4.9); Cholesterol 66 mg/dL (< 200); Glucose 110 mg/dL (70-105); HDL Cholesterol 14 mg/dL (40-59); LDL Cholesterol,Calculated 25 mg/dL (< 100); Osmolality,Calculated 270 (280-300); Potassium 4.1 mEq/L (3.5-5.1); Sodium 130 mEq/L (136-145); Triglycerides 137 mg/dL (< 150); eGFR For African Americans > 60 (> 60); eGFR For Non-African Americans > 60 (> 60)
[2021-10-10 19:01] LABS: Estimated Average Glucose 120 mg/dl; Hemoglobin A1C 5.8 %
[2021-10-10] MEDS: Chlorhexidine Rinse 15 ML MOUTHWASH MM SCH (20:35)
[2021-10-11 01:35] LABS: Basophils # 0.1 K/mcL (0.0-0.2); Basophils % 0.5 %; Hemoglobin 7.7 g/dL (12.9-16.9); Immature Granulocytes % 2.2 % (0-4); Lymphocytes # 1.6 K/mcL (0.6-4.6); Lymphocytes % 10.4 %; Mean Corpuscular HGB Conc 29.6 g/dL (31.6-35.5); Mean Corpuscular Hemoglobin 29.3 pg (28.0-33.3); Mean Platelet Volume 11.6 fL (9.4-12.4); Monocytes # 1.8 K/mcL (0.0-1.3); Monocytes % 11.6 %; Neutrophils # 11.3 K/mcL (1.6-8.9); Platelet Count 160 K/mcL (140-400); Red Blood Count 2.63 M/mcL (4.19-5.50); Segmented Neutrophils % 75.3 %
[2021-10-11 01:40] LABS: Mean Corpuscular Volume 98.9 fL (83.0-100.0)
[2021-10-11] MEDS ORDERED: Norepinephrine 4 MG in 0.9 % Sodium Chloride 250 ML IVC PRN (06:00)
[2021-10-11] MEDS ORDERED: Aspirin 81 MG TAB.CHEW PO ONE (06:00)
[2021-10-11] MEDS ORDERED: Heparin 15,000 UNIT in 0.9 % Sodium Chloride 500 ML IV ONE ×2 (06:00→20:54)
[2021-10-11] MEDS ORDERED: Buckersberg's Blood Cardioplegia PF SCH (06:00)
[2021-10-11] MEDS ORDERED: del Nido Cardioplegia Solution PF SCH (06:00)
[2021-10-11] MEDS ORDERED: del Nido Cardioplegia Solution PF ONE (06:00)
[2021-10-11] MEDS: Cyanocobalamin (B-12) 1,000 MCG TABLET PO SCH (08:23)
[2021-10-11] MEDS: Chlorhexidine Rinse 15 ML MOUTHWASH MM SCH ×2 (08:23→22:07)
[2021-10-11] MEDS: *HR* OxyCODONE Immed Rel 5 MG TABLET PO PRN (08:23)
[2021-10-11] MEDS: Folic Acid 1 MG TABLET PO SCH (08:24)
[2021-10-11 10:20] LABS: Alanine Aminotransferase 24 Units/L (7-52); Albumin 2.1 g/dL (3.5-5.7); Albumin/Globulin Ratio 0.4 (1.1-2.2); Alkaline Phosphatase 45 Units/L (34-104); Aspartate Amino Transferase 36 Units/L (13-39); BUN/Creatinine Ratio 20 (6-26); Bilirubin,Total 0.4 mg/dL (0.3-1.0); Blood Urea Nitrogen 11 mg/dL (6-20); Calcium 7.6 mg/dL (8.6-10.3); Carbon Dioxide 24 mEq/L (23-29); Chloride 103 mEq/L (98-107); Globulin 4.9 g/dL (2.4-3.5); Glucose 84 mg/dL (70-105); Osmolality,Calculated 271 (280-300); Potassium 4.3 mEq/L (3.5-5.1); Sodium 131 mEq/L (136-145); eGFR For African Americans > 60 (> 60); eGFR For Non-African Americans > 60 (> 60)
[2021-10-11] MEDS: DAPTOmycin 500 MG in 0.9 % Sodium Chloride 100 ML IVPB SCH (13:04)
[2021-10-11] MEDS ORDERED: Papaverine 60 MG/2 ML VIAL IVP ONE (13:09)
[2021-10-11] MEDS ORDERED: Vancomycin 1,000 MG VIAL ONE (13:09)
[2021-10-11] MEDS ORDERED: *HR* FentaNYL (PF) 1,000 MCG/20 ML VIAL ONE (13:30)
[2021-10-11] MEDS ORDERED: *HR* Midazolam HCl 5 MG/5 ML VIAL IVP ONE ×4 (13:30→21:30)
[2021-10-11] MEDS ORDERED: *HR* Propofol 200 MG/20 ML VIAL IVP ONE (13:31)
[2021-10-11] MEDS ORDERED: *HR* Rocuronium Bromide 50 MG/5 ML VIAL ONE ×3 (13:32→16:56)
[2021-10-11] MEDS ORDERED: *HR* Magnesium Sulfate 1 GM/2 ML VIAL ONE (13:34)
[2021-10-11] MEDS ORDERED: Famotidine 20 MG/2 ML VIAL ONE (13:34)
[2021-10-11] MEDS ORDERED: Tranexamic Acid 1,000 MG/10 ML VIAL ONE ×2 (13:35→17:00)
[2021-10-11] MEDS ORDERED: Lidocaine 2% Syringe 100 MG/5 ML ONE ×2 (13:40→17:00)
[2021-10-11 14:46] LABS: ABG Base Excess -2 mEq/L (-2 to 3); ABG Chloride 103 mEq/L (98-107); ABG Glucose 75 mg/dL (60-95); ABG HCO3 21 mEq/L (21-27); ABG Oxygen Saturation 100 % (95-98); ABG PCO2 30 mmHg (35-45); ABG PH 7.46 pH Units (7.32-7.45); ABG PO2 349 mmHg (85-104); ABG TCO2 22 mEq/L (20-26)
[2021-10-11] MEDS ORDERED: CeFAZolin 2,000 MG/120 ML BAG IVPB ONE (15:23)
[2021-10-11] MEDS ORDERED: Dexmedetomidine HCl 400 MCG/100 ML MLS IVC SCH (15:30)
[2021-10-11] MEDS ORDERED: Protamine Sulfate 50 MG/5 ML VIAL IVP ONE (15:44)
[2021-10-11] MEDS ORDERED: Protamine Sulfate 250 MG/25 ML VIAL IVP ONE (15:44)
[2021-10-11] MEDS ORDERED: Calcium Gluconate 1,000 MG/10 ML VIAL ONE ×2 (15:44→17:30)
[2021-10-11] MEDS ORDERED: *HR* Heparin 10,000 UNIT/10 ML VIAL ONE (17:00)
[2021-10-11] MEDS ORDERED: *HR* Phenylephrine 10 MG/ML VIAL ONE (17:00)
[2021-10-11] MEDS ORDERED: Albumin Human 25% 25 GM/100 ML IV.SOLN ONE (17:00)
[2021-10-11] MEDS ORDERED: Sodium Bicarbonate 50 MEQ/50 ML VIAL ONE (17:00)
[2021-10-11] MEDS ORDERED: *HR* Magnesium Sulfate 2 GM/50 ML PIGGYBACK IVPB ONE (17:00)
[2021-10-11] MEDS ORDERED: Mannitol 25% vial 12.5 GM/50 ML VIAL ONE (17:00)
[2021-10-11] MEDS ORDERED: Heparin 1,000 UNITS/500 mL IV.SOLN ONE (17:00)
[2021-10-11] MEDS ORDERED: Albumin Human 5% 12.5 GM/250 ML IV.SOLN ONE (17:06)
[2021-10-11] MEDS ORDERED: *HR* FentaNYL (PF) 250 MCG/5 ML VIAL ONE (17:14)
[2021-10-11] MEDS ORDERED: Vasopressin 40 UNIT in D5% in Water 100 ML IVC SCH (17:15)
[2021-10-11] MEDS ORDERED: *HR* Dextrose 50 % in Water (Syg) 50 ML SYRINGE IVP PRN ×2 (18:20→20:54)
[2021-10-11] MEDS ORDERED: Insulin Regular, Human 100 UNIT/ML IV PRN ×2 (18:20→20:54)
[2021-10-11] MEDS ORDERED: Calcium Gluconate 1gm/50mL 1 GM/50 ML BAG IVPB PRN ×2 (18:20→20:54)
[2021-10-11] MEDS ORDERED: Ondansetron 4 MG/2 ML VIAL IVP PRN ×2 (18:20→20:54)
[2021-10-11] MEDS ORDERED: Potassium Chloride 40 MEQ/200 ML BAG IVPB PRN ×2 (18:20→20:54)
[2021-10-11] MEDS ORDERED: Norepinephrine 4 MG/254 ML IV.SOLN IVC SCH (18:30)
[2021-10-11 18:33] LABS: Blood Gas VT 550 cc; VBG HCO3 23 mEq/L (21-27); VBG PCO2 43 mmHg (41-51); VBG PH 7.33 pH Units (7.32-7.42); VBG PO2 108 mmHg (25-50)
[2021-10-11 18:55] LABS: INR 1.8; Prothrombin Time 20.4 Seconds (9.4-12.1)
[2021-10-11 18:57] LABS: BUN/Creatinine Ratio 26 (6-26); Blood Urea Nitrogen 14 mg/dL (6-20); Calcium 7.7 mg/dL (8.6-10.3); Carbon Dioxide 25 mEq/L (23-29); Chloride 103 mEq/L (98-107); Glucose 201 mg/dL (70-105); Magnesium 2.7 mg/dL (1.6-2.6); Osmolality,Calculated 282 (280-300); Potassium 4.6 mEq/L (3.5-5.1); Sodium 133 mEq/L (136-145); eGFR For African Americans > 60 (> 60); eGFR For Non-African Americans > 60 (> 60)
[2021-10-11 18:58] LABS: Activated Partial Thrombo Time 34.8 Seconds (26.0-36.0)
[2021-10-11] MEDS: Vasopressin 40 UNIT in D5% in Water 100 ML IVC SCH (19:00)
[2021-10-11 19:41] LABS: Hematocrit 19.8 % (37.5-50.1); Hemoglobin 6.3 g/dL (12.9-16.9); Mean Corpuscular HGB Conc 31.8 g/dL (31.6-35.5); Mean Corpuscular Volume 91.2 fL (83.0-100.0); Mean Platelet Volume 9.2 fL (9.4-12.4); Platelet Count 197 K/mcL (140-400); Red Blood Count 2.17 M/mcL (4.19-5.50); Red Cell Distribution Width 15.5 % (11.5-14.5); White Blood Count 25.5 K/mcL (4.3-11.1)
[2021-10-11 19:44] LABS: Eosinophils # 0.3 K/mcL (0.0-0.6); Lymphocytes # 3.1 K/mcL (0.6-4.6); Monocytes # 0.5 K/mcL (0.0-1.3); Neutrophils # 21.4 K/mcL (1.6-8.9)
[2021-10-11 19:45] LABS: Platelet Estimate Normal (Normal)
[2021-10-11] MEDS ORDERED: *HR* FentaNYL (PF) 100 MCG/2 ML VIAL IVP PRN (20:45)
[2021-10-11] MEDS ORDERED: *HR* FentaNYL (PF) 100 MCG/2 ML VIAL ONE (20:46)
[2021-10-11] MEDS ORDERED: 0.9 % Sodium Chloride 500 ML ONE (20:48)
[2021-10-11] MEDS ORDERED: Ipratropium/Albuterol Neb 3 ML IH PRN (20:54)
[2021-10-11] MEDS ORDERED: *HR* LORazepam 0.5 MG TABLET PO PRN (20:54)
[2021-10-11] MEDS ORDERED: Mannitol 25% vial 3.25 GM, Magnesium Sulfate 2 GM, Sodium Bicarbonate 13 MEQ, Potassium... PF ONE (20:54)
[2021-10-11] MEDS ORDERED: Ondansetron ODT 4 MG TAB.RAPDIS SL PRN (20:54)
[2021-10-11] MEDS ORDERED: Melatonin 3 MG TABLET PO PRN (20:54)
[2021-10-11] MEDS ORDERED: Naloxone 0.4 MG/ML INJ IVP PRN (20:54)
[2021-10-11] MEDS ORDERED: *HR* OxyCODONE Immed Rel 5 MG TABLET PO PRN (20:54)
[2021-10-11] MEDS ORDERED: Perflutren Lipid Microsphere 1.3 ML in 0.9 % Sodium Chloride 8.7 ML IVP PRN (20:54)
[2021-10-11] MEDS ORDERED: Sodium Bicarbonate 10 MEQ, Potassium Chloride 80 MEQ in CARDIOPLEGIC SOLUTION NO.1 1,00... PF SCH (20:54)
[2021-10-11] MEDS ORDERED: Acetaminophen 325 MG TABLET PO PRN (20:54)
[2021-10-11] MEDS ORDERED: Mannitol 25% vial 3.25 GM, Magnesium Sulfate 2 GM, Sodium Bicarbonate 13 MEQ, Potassium... PF SCH (20:54)
[2021-10-11] MEDS ORDERED: Chlorhexidine Rinse 15 ML MOUTHWASH MM SCH (21:00)
[2021-10-11] MEDS ORDERED: niCARdipine 20 MG/200 ML MLS IVC ONE (21:12)
[2021-10-11] MEDS: *HR* FentaNYL (PF) 100 MCG/2 ML VIAL IVP PRN (21:19)
[2021-10-11] MEDS: niCARdipine 20 MG/200 ML MLS IVC SCH (21:29)
[2021-10-11 23:15] LABS: ABG Base Excess -2 mEq/L (-2 to 3); ABG HCO3 23 mEq/L (21-27); ABG Oxygen Saturation 99 % (95-98); ABG PCO2 39 mmHg (35-45); ABG PH 7.38 pH Units (7.32-7.45); ABG PO2 124 mmHg (85-104); ABG TCO2 24 mEq/L (20-26); Blood Gas Modality AF; Blood Gas VT 550 cc
[2021-10-11] MEDS: Albumin Human 5% 12.5 GM/250 ML IV.SOLN IVPB PRN ×2 (23:25→23:43)
[2021-10-11] MEDS: FentaNYL (PF) 1,000 MCG/100 ML IV.SOLN IVC SCH ×2 (23:37→23:41)
[2021-10-12] MEDS ORDERED: CeFAZolin 2 GM/120 ML BAG IVPB SCH
[2021-10-12] MEDS: Dexmedetomidine HCl 400 MCG/100 ML MLS IVC SCH ×2 (00:02→15:40)
[2021-10-12] MEDS: CeFAZolin 2 GM/120 ML BAG IVPB SCH ×2 (00:19→07:55)
[2021-10-12] MEDS: Norepinephrine 4 MG/254 ML IV.SOLN IVC SCH ×2 (00:37→20:45)
[2021-10-12] MEDS: Albumin Human 5% 12.5 GM/250 ML IV.SOLN IVPB PRN (03:01)
[2021-10-12] MEDS: niCARdipine 20 MG/200 ML MLS IVC SCH ×3 (03:01→20:39)
[2021-10-12 03:02] LABS: Basophils # 0.1 K/mcL (0.0-0.2); Basophils % 0.4 %; Hematocrit 30.7 % (37.5-50.1); Immature Granulocytes % 3.7 % (0-4); Lymphocytes % 8.5 %; Mean Corpuscular HGB Conc 32.9 g/dL (31.6-35.5); Mean Corpuscular Hemoglobin 29.1 pg (28.0-33.3); Mean Corpuscular Volume 88.5 fL (83.0-100.0); Mean Platelet Volume 8.7 fL (9.4-12.4); Monocytes # 0.9 K/mcL (0.0-1.3); Monocytes % 7.6 %; Platelet Count 213 K/mcL (140-400); Red Blood Count 3.47 M/mcL (4.19-5.50); Red Cell Distribution Width 15.8 % (11.5-14.5); Segmented Neutrophils % 79.8 %
[2021-10-12 03:11] LABS: Hemoglobin 10.1 g/dL (12.9-16.9); Neutrophils # 9.7 K/mcL (1.6-8.9); White Blood Count 12.2 K/mcL (4.3-11.1)
[2021-10-12 03:12] LABS: Alanine Aminotransferase 17 Units/L (7-52); Albumin 2.8 g/dL (3.5-5.7); Albumin/Globulin Ratio 0.8 (1.1-2.2); Alkaline Phosphatase 36 Units/L (34-104); Aspartate Amino Transferase 44 Units/L (13-39); BUN/Creatinine Ratio 41 (6-26); Bilirubin,Total 0.4 mg/dL (0.3-1.0); Blood Urea Nitrogen 21 mg/dL (6-20); Calcium 7.7 mg/dL (8.6-10.3); Carbon Dioxide 23 mEq/L (23-29); Chloride 107 mEq/L (98-107); Globulin 3.5 g/dL (2.4-3.5); Glucose 118 mg/dL (70-105); Osmolality,Calculated 290 (280-300); Potassium 4.6 mEq/L (3.5-5.1); Sodium 138 mEq/L (136-145); Total Protein 6.3 g/dL (6.4-8.9); eGFR For African Americans > 60 (> 60); eGFR For Non-African Americans > 60 (> 60)
[2021-10-12 03:14] LABS: INR 1.5; Prothrombin Time 16.5 Seconds (9.4-12.1)
[2021-10-12 03:17] LABS: Activated Partial Thrombo Time 33.2 Seconds (26.0-36.0)
[2021-10-12 03:56] LABS: ABG Base Excess -1 mEq/L (-2 to 3); ABG HCO3 24 mEq/L (21-27); ABG Oxygen Saturation 100 % (95-98); ABG PCO2 41 mmHg (35-45); ABG PH 7.37 pH Units (7.32-7.45); ABG PO2 219 mmHg (85-104); ABG TCO2 25 mEq/L (20-26); Blood Gas Modality AF; Blood Gas VT 550 cc
[2021-10-12] MEDS: FentaNYL (PF) 1,000 MCG/100 ML IV.SOLN IVC SCH (06:52)
[2021-10-12] MEDS: Cyanocobalamin (B-12) 1,000 MCG TABLET PO SCH (08:21)
[2021-10-12] MEDS: Pantoprazole 40 MG VIAL IVP SCH (08:21)
[2021-10-12] MEDS: Folic Acid 1 MG TABLET PO SCH (08:21)
[2021-10-12] MEDS: Chlorhexidine Rinse 15 ML MOUTHWASH MM SCH ×2 (08:22→20:44)
[2021-10-12] MEDS ORDERED: Pantoprazole 40 MG VIAL IVP SCH (09:00)
[2021-10-12] MEDS ORDERED: DAPTOmycin 500 MG in 0.9 % Sodium Chloride 100 ML IVPB SCH (13:00)
[2021-10-12] MEDS: Vasopressin 40 UNIT in D5% in Water 100 ML IVC SCH (15:41)
[2021-10-12] MEDS: Bumetanide 1 MG/4 ML VIAL IVP SCH (17:41)
[2021-10-12] MEDS: *HR* FentaNYL (PF) 100 MCG/2 ML VIAL IVP PRN (20:44)
[2021-10-13] MEDS: *HR* FentaNYL (PF) 100 MCG/2 ML VIAL IVP PRN ×5 (02:07→17:20)
[2021-10-13] MEDS: Vasopressin 40 UNIT in D5% in Water 100 ML IVC SCH (03:54)
[2021-10-13] MEDS: Dexmedetomidine HCl 400 MCG/100 ML MLS IVC SCH (03:54)
[2021-10-13] MEDS: niCARdipine 20 MG/200 ML MLS IVC SCH (03:54)
[2021-10-13 04:59] LABS: Basophils # 0.1 K/mcL (0.0-0.2); Basophils % 0.3 %; Immature Granulocytes % 1.5 % (0-4); Lymphocytes # 1.8 K/mcL (0.6-4.6); Lymphocytes % 11.9 %; Mean Corpuscular HGB Conc 32.3 g/dL (31.6-35.5); Mean Corpuscular Hemoglobin 28.7 pg (28.0-33.3); Mean Corpuscular Volume 89.1 fL (83.0-100.0); Monocytes # 1.7 K/mcL (0.0-1.3); Monocytes % 11.1 %; Neutrophils # 11.4 K/mcL (1.6-8.9); Platelet Count 301 K/mcL (140-400); Red Blood Count 3.48 M/mcL (4.19-5.50); Red Cell Distribution Width 16.4 % (11.5-14.5); Segmented Neutrophils % 75.2 %; White Blood Count 15.1 K/mcL (4.3-11.1)
[2021-10-13 05:09] LABS: BUN/Creatinine Ratio 43 (6-26); Blood Urea Nitrogen 24 mg/dL (6-20); Calcium 7.5 mg/dL (8.6-10.3); Carbon Dioxide 23 mEq/L (23-29); Chloride 103 mEq/L (98-107); Glucose 89 mg/dL (70-105); Osmolality,Calculated 278 (280-300); Phosphorous 3.2 mg/dL (2.7-4.5); Potassium 3.9 mEq/L (3.5-5.1); Sodium 132 mEq/L (136-145); eGFR For African Americans > 60 (> 60); eGFR For Non-African Americans > 60 (> 60)
[2021-10-13 05:37] LABS: VBG Ionized Calcium 1.02 mmol/L (1.15-1.35)
[2021-10-13] MEDS: Bumetanide 1 MG/4 ML VIAL IVP SCH (08:40)
[2021-10-13] MEDS: Pantoprazole 40 MG VIAL IVP SCH (08:43)
[2021-10-13] MEDS: Chlorhexidine Rinse 15 ML MOUTHWASH MM SCH ×2 (08:45→19:57)
[2021-10-13] MEDS: Folic Acid 1 MG TABLET PO SCH (08:46)
[2021-10-13] MEDS: Cyanocobalamin (B-12) 1,000 MCG TABLET PO SCH (08:46)
[2021-10-13] MEDS ORDERED: *HR* Acetaminophen w/Cod 300-30 mg 1 TAB TABLET PO PRN (08:53)
[2021-10-13 08:58] LABS: ABG Base Excess -6 mEq/L (-2 to 3); ABG Chloride 104 mEq/L (98-107); ABG Glucose 198 mg/dL (60-95); ABG HCO3 20 mEq/L (21-27); ABG Ionized Calcium 1.11 mmol/L (1.15-1.35); ABG Oxygen Saturation 96 % (95-98); ABG PCO2 36 mmHg (35-45); ABG PH 7.35 pH Units (7.32-7.45); ABG PO2 83 mmHg (85-104); ABG TCO2 21 mEq/L (20-26)
[2021-10-13] MEDS ORDERED: Acetaminophen 325 MG TABLET PO PRN (10:38)
[2021-10-13] MEDS ORDERED: *HR* OxyCODONE Immed Rel 5 MG TABLET PO PRN (10:39)
[2021-10-13] MEDS ORDERED: Ondansetron ODT 4 MG TAB.RAPDIS SL PRN (10:58)
[2021-10-13] MEDS ORDERED: D5% in Water 1,000 ML IVC PRN ×2 (11:01→18:24)
[2021-10-13] MEDS ORDERED: *HR* Dextrose 50 % in Water (Syg) 50 ML SYRINGE IVP PRN ×2 (11:01→18:24)
[2021-10-13] MEDS ORDERED: Dextrose Gel 15 GM/37.5 ML TUBE PO PRN ×4 (11:01→18:24)
[2021-10-13] MEDS ORDERED: DAPTOmycin 500 MG in 0.9 % Sodium Chloride 100 ML IVPB SCH (12:00)
[2021-10-13] MEDS: Insulin LISPRO 300 UNITS/3 ML VIAL SUBQ SCH ×3 (12:36→20:43)
[2021-10-13] MEDS ORDERED: Bumetanide 1 MG/4 ML VIAL IVP SCH (17:00)
[2021-10-13] MEDS ORDERED: *HR* Heparin 5,000 UNIT/ML VIAL SQ SCH ×2 (18:00)
[2021-10-13] MEDS ORDERED: *HR* FentaNYL (PF) 100 MCG/2 ML VIAL IVP PRN (18:24)
[2021-10-13] MEDS: *HR* OxyCODONE Immed Rel 5 MG TABLET PO PRN (19:57)
[2021-10-13] MEDS ORDERED: Chlorhexidine Rinse 15 ML MOUTHWASH MM SCH (21:00)
[2021-10-13] MEDS ORDERED: Insulin LISPRO 300 UNITS/3 ML VIAL SUBQ SCH (21:00)
[2021-10-14 02:15] LABS: BUN/Creatinine Ratio 34 (6-26); Blood Urea Nitrogen 21 mg/dL (6-20); Calcium 7.8 mg/dL (8.6-10.3); Carbon Dioxide 20 mEq/L (23-29); Chloride 105 mEq/L (98-107); Glucose 97 mg/dL (70-105); Magnesium 1.7 mg/dL (1.6-2.6); Osmolality,Calculated 285 (280-300); Potassium 4.3 mEq/L (3.5-5.1); Sodium 136 mEq/L (136-145); eGFR For African Americans > 60 (> 60); eGFR For Non-African Americans > 60 (> 60)
[2021-10-14] MEDS: *HR* OxyCODONE Immed Rel 5 MG TABLET PO PRN ×4 (02:20→22:18)
[2021-10-14 02:36] LABS: Hematocrit 31.8 % (37.5-50.1); Hemoglobin 10.4 g/dL (12.9-16.9); Mean Corpuscular HGB Conc 32.7 g/dL (31.6-35.5); Mean Corpuscular Hemoglobin 29.2 pg (28.0-33.3); Mean Corpuscular Volume 89.3 fL (83.0-100.0); Mean Platelet Volume 9.8 fL (9.4-12.4); Platelet Count 293 K/mcL (140-400); Red Blood Count 3.56 M/mcL (4.19-5.50); Red Cell Distribution Width 16.1 % (11.5-14.5)
[2021-10-14] MEDS: *HR* Heparin 5,000 UNIT/ML VIAL SQ SCH ×2 (05:53→17:34)
[2021-10-14] MEDS: Bumetanide 1 MG/4 ML VIAL IVP SCH ×2 (07:55→17:33)
[2021-10-14] MEDS: Pantoprazole 40 MG VIAL IVP SCH (07:55)
[2021-10-14] MEDS: Chlorhexidine Rinse 15 ML MOUTHWASH MM SCH ×2 (07:56→20:31)
[2021-10-14] MEDS: Acetaminophen 325 MG TABLET PO PRN (07:56)
[2021-10-14] MEDS: Insulin LISPRO 300 UNITS/3 ML VIAL SUBQ SCH ×4 (07:57→20:21)
[2021-10-14] MEDS: Folic Acid 1 MG TABLET PO SCH (07:57)
[2021-10-14] MEDS: Cyanocobalamin (B-12) 1,000 MCG TABLET PO SCH (07:57)
[2021-10-14] MEDS ORDERED: Pantoprazole 40 MG VIAL IVP SCH (09:00)
[2021-10-14] MEDS ORDERED: Cyanocobalamin (B-12) 1,000 MCG TABLET PO SCH (09:00)
[2021-10-14] MEDS ORDERED: Folic Acid 1 MG TABLET PO SCH (09:00)
[2021-10-14] MEDS: DAPTOmycin 500 MG in 0.9 % Sodium Chloride 100 ML IVPB SCH (11:24)
[2021-10-14] MEDS: *HR* FentaNYL (PF) 100 MCG/2 ML VIAL IVP PRN ×2 (14:14→20:31)
[2021-10-14] MEDS: hydrOXYzine pamoate 25 MG CAPSULE PO PRN (20:30)
[2021-10-15] MEDS: *HR* FentaNYL (PF) 100 MCG/2 ML VIAL IVP PRN ×3 (02:21→15:17)
[2021-10-15] MEDS: *HR* Heparin 5,000 UNIT/ML VIAL SQ SCH ×3 (04:52→18:10)
[2021-10-15] MEDS: *HR* OxyCODONE Immed Rel 5 MG TABLET PO PRN ×3 (05:06→18:11)
[2021-10-15] MEDS: hydrOXYzine pamoate 25 MG CAPSULE PO PRN (05:11)
[2021-10-15 05:20] LABS: Basophils # 0.1 K/mcL (0.0-0.2); Basophils % 0.4 %; Eosinophils % 0.1 %; Hematocrit 30.3 % (37.5-50.1); Hemoglobin 9.7 g/dL (12.9-16.9); Immature Granulocytes % 1.1 % (0-4); Lymphocytes # 1.5 K/mcL (0.6-4.6); Lymphocytes % 13.2 %; Mean Corpuscular Hemoglobin 28.6 pg (28.0-33.3); Mean Corpuscular Volume 89.4 fL (83.0-100.0); Monocytes # 1.5 K/mcL (0.0-1.3); Monocytes % 13.1 %; Neutrophils # 8.1 K/mcL (1.6-8.9); Platelet Count 284 K/mcL (140-400); Red Blood Count 3.39 M/mcL (4.19-5.50); Red Cell Distribution Width 16.1 % (11.5-14.5); Segmented Neutrophils % 72.1 %; White Blood Count 11.3 K/mcL (4.3-11.1)
[2021-10-15 05:39] LABS: BUN/Creatinine Ratio 26 (6-26); Blood Urea Nitrogen 13 mg/dL (6-20); Calcium 8.1 mg/dL (8.6-10.3); Carbon Dioxide 23 mEq/L (23-29); Chloride 102 mEq/L (98-107); Glucose 102 mg/dL (70-105); Osmolality,Calculated 274 (280-300); Sodium 132 mEq/L (136-145); eGFR For African Americans > 60 (> 60); eGFR For Non-African Americans > 60 (> 60)
[2021-10-15] MEDS: Insulin LISPRO 300 UNITS/3 ML VIAL SUBQ SCH ×4 (07:25→20:28)
[2021-10-15] MEDS: Acetaminophen 325 MG TABLET PO PRN ×2 (07:37→17:02)
[2021-10-15] MEDS: Pantoprazole 40 MG VIAL IVP SCH (07:37)
[2021-10-15] MEDS: Folic Acid 1 MG TABLET PO SCH (07:39)
[2021-10-15] MEDS: Chlorhexidine Rinse 15 ML MOUTHWASH MM SCH ×2 (07:39→20:34)
[2021-10-15] MEDS: Bumetanide 1 MG/4 ML VIAL IVP SCH ×2 (07:39→17:03)
[2021-10-15] MEDS: Cyanocobalamin (B-12) 1,000 MCG TABLET PO SCH (07:39)
[2021-10-15] MEDS ORDERED: hydrOXYzine pamoate 25 MG CAPSULE PO PRN (10:51)
[2021-10-15] MEDS: DAPTOmycin 500 MG in 0.9 % Sodium Chloride 100 ML IVPB SCH (10:59)
[2021-10-15] MEDS: hydrOXYzine pamoate 25 MG CAPSULE PO SCH ×2 (13:08→20:34)
[2021-10-15] MEDS ORDERED: Ibuprofen 400 MG TABLET PO ONE (18:35)
[2021-10-16] MEDS: *HR* OxyCODONE Immed Rel 5 MG TABLET PO PRN ×2 (00:14→20:37)
[2021-10-16] MEDS: *HR* Heparin 5,000 UNIT/ML VIAL SQ SCH ×2 (04:40→18:43)
[2021-10-16] MEDS: Acetaminophen 325 MG TABLET PO PRN (04:45)
[2021-10-16] MEDS: hydrOXYzine pamoate 25 MG CAPSULE PO SCH ×4 (04:45→18:43)
[2021-10-16] MEDS: *HR* FentaNYL (PF) 100 MCG/2 ML VIAL IVP PRN ×4 (04:51→18:42)
[2021-10-16] MEDS: Pantoprazole 40 MG VIAL IVP SCH (08:58)
[2021-10-16] MEDS: Bumetanide 1 MG/4 ML VIAL IVP SCH ×2 (08:59→18:42)
[2021-10-16] MEDS: Cyanocobalamin (B-12) 1,000 MCG TABLET PO SCH (08:59)
[2021-10-16] MEDS: Chlorhexidine Rinse 15 ML MOUTHWASH MM SCH ×2 (08:59→20:26)
[2021-10-16] MEDS: Folic Acid 1 MG TABLET PO SCH (09:00)
[2021-10-16] MEDS: Insulin LISPRO 300 UNITS/3 ML VIAL SUBQ SCH ×4 (09:01→21:33)
[2021-10-16] MEDS: DAPTOmycin 500 MG in 0.9 % Sodium Chloride 100 ML IVPB SCH (12:24)
[2021-10-16 21:31] LABS: Basophils # 0.1 K/mcL (0.0-0.2); Eosinophils % 0.3 %; Hematocrit 31.2 % (37.5-50.1); Hemoglobin 10.1 g/dL (12.9-16.9); Immature Granulocytes % 1.8 % (0-4); Lymphocytes # 1.4 K/mcL (0.6-4.6); Lymphocytes % 15.3 %; Mean Corpuscular HGB Conc 32.4 g/dL (31.6-35.5); Mean Corpuscular Hemoglobin 28.9 pg (28.0-33.3); Mean Corpuscular Volume 89.1 fL (83.0-100.0); Mean Platelet Volume 9.2 fL (9.4-12.4); Monocytes # 1.1 K/mcL (0.0-1.3); Monocytes % 12.4 %; Neutrophils # 6.1 K/mcL (1.6-8.9); Platelet Count 368 K/mcL (140-400); Red Cell Distribution Width 15.9 % (11.5-14.5); Segmented Neutrophils % 69.2 %; White Blood Count 8.9 K/mcL (4.3-11.1)
[2021-10-16 21:50] LABS: Alanine Aminotransferase 21 Units/L (7-52); Albumin 2.8 g/dL (3.5-5.7); Albumin/Globulin Ratio 0.6 (1.1-2.2); Alkaline Phosphatase 60 Units/L (34-104); Aspartate Amino Transferase 29 Units/L (13-39); BUN/Creatinine Ratio 25 (6-26); Bilirubin,Total 0.4 mg/dL (0.3-1.0); Blood Urea Nitrogen 14 mg/dL (6-20); Calcium 8.1 mg/dL (8.6-10.3); Carbon Dioxide 23 mEq/L (23-29); Chloride 100 mEq/L (98-107); Globulin 4.5 g/dL (2.4-3.5); Glucose 89 mg/dL (70-105); Osmolality,Calculated 278 (280-300); Potassium 3.4 mEq/L (3.5-5.1); Sodium 134 mEq/L (136-145); Total Protein 7.3 g/dL (6.4-8.9); eGFR For African Americans > 60 (> 60); eGFR For Non-African Americans > 60 (> 60)
[2021-10-17] MEDS: *HR* FentaNYL (PF) 100 MCG/2 ML VIAL IVP PRN ×4 (02:17→17:46)
[2021-10-17] MEDS: *HR* Heparin 5,000 UNIT/ML VIAL SQ SCH ×2 (05:50→17:46)
[2021-10-17] MEDS: *HR* OxyCODONE Immed Rel 5 MG TABLET PO PRN ×3 (05:54→21:50)
[2021-10-17] MEDS: Chlorhexidine Rinse 15 ML MOUTHWASH MM SCH ×2 (08:18→20:21)
[2021-10-17] MEDS: Insulin LISPRO 300 UNITS/3 ML VIAL SUBQ SCH ×4 (08:18→20:16)
[2021-10-17] MEDS: hydrOXYzine pamoate 25 MG CAPSULE PO SCH ×2 (08:18→16:21)
[2021-10-17] MEDS: Folic Acid 1 MG TABLET PO SCH (08:19)
[2021-10-17] MEDS: Bumetanide 1 MG/4 ML VIAL IVP SCH (08:19)
[2021-10-17] MEDS: Cyanocobalamin (B-12) 1,000 MCG TABLET PO SCH (08:20)
[2021-10-17 12:28] LABS: Monocytes % 16.6 %; Red Cell Distribution Width 15.8 % (11.5-14.5)
[2021-10-17 12:30] LABS: Basophils # 0.1 K/mcL (0.0-0.2); Basophils % 0.9 %; Eosinophils # 0.1 K/mcL (0.0-0.6); Eosinophils % 0.7 %; Hematocrit 34.3 % (37.5-50.1); Hemoglobin 11.4 g/dL (12.9-16.9); Immature Platelets 4.3 % (1.1-6.1); Lymphocytes # 1.4 K/mcL (0.6-4.6); Lymphocytes % 16.1 %; Mean Corpuscular HGB Conc 33.2 g/dL (31.6-35.5); Mean Corpuscular Hemoglobin 29.1 pg (28.0-33.3); Mean Corpuscular Volume 87.5 fL (83.0-100.0); Mean Platelet Volume 9.3 fL (9.4-12.4); Monocytes # 1.5 K/mcL (0.0-1.3); Neutrophils # 5.7 K/mcL (1.6-8.9); Platelet Count 306 K/mcL (140-400); Red Blood Count 3.92 M/mcL (4.19-5.50); Segmented Neutrophils % 63.7 %; White Blood Count 8.9 K/mcL (4.3-11.1)
[2021-10-17 14:33] LABS: Alanine Aminotransferase 24 Units/L (7-52); Albumin 2.7 g/dL (3.5-5.7); Albumin/Globulin Ratio 0.6 (1.1-2.2); Alkaline Phosphatase 59 Units/L (34-104); Aspartate Amino Transferase 34 Units/L (13-39); BUN/Creatinine Ratio 24 (6-26); Bilirubin,Total 0.5 mg/dL (0.3-1.0); Blood Urea Nitrogen 16 mg/dL (6-20); Calcium 7.9 mg/dL (8.6-10.3); Carbon Dioxide 23 mEq/L (23-29); Chloride 102 mEq/L (98-107); Globulin 4.4 g/dL (2.4-3.5); Glucose 93 mg/dL (70-105); Osmolality,Calculated 281 (280-300); Potassium 4.2 mEq/L (3.5-5.1); Sodium 135 mEq/L (136-145); Total Protein 7.1 g/dL (6.4-8.9); eGFR For African Americans > 60 (> 60); eGFR For Non-African Americans > 60 (> 60)
[2021-10-17] MEDS: Acetaminophen 325 MG TABLET PO PRN ×2 (16:21→23:39)
[2021-10-17 17:37] LABS: Magnesium 1.7 mg/dL (1.6-2.6)
[2021-10-18] MEDS: hydrOXYzine pamoate 25 MG CAPSULE PO SCH ×3 (01:33→16:57)
[2021-10-18] MEDS: *HR* FentaNYL (PF) 100 MCG/2 ML VIAL IVP PRN ×5 (01:33→21:39)
[2021-10-18] MEDS: *HR* OxyCODONE Immed Rel 5 MG TABLET PO PRN ×2 (04:02→16:58)
[2021-10-18 05:05] LABS: Basophils # 0.1 K/mcL (0.0-0.2); Basophils % 0.9 %; Eosinophils # 0.2 K/mcL (0.0-0.6); Eosinophils % 3.5 %; Hematocrit 31.5 % (37.5-50.1); Hemoglobin 10.3 g/dL (12.9-16.9); Immature Granulocytes % 1.4 % (0-4); Lymphocytes # 1.2 K/mcL (0.6-4.6); Lymphocytes % 19.2 %; Mean Corpuscular HGB Conc 32.7 g/dL (31.6-35.5); Mean Corpuscular Hemoglobin 28.9 pg (28.0-33.3); Mean Corpuscular Volume 88.5 fL (83.0-100.0); Mean Platelet Volume 9.3 fL (9.4-12.4); Monocytes # 1.1 K/mcL (0.0-1.3); Monocytes % 17.2 %; Neutrophils # 3.7 K/mcL (1.6-8.9); Platelet Count 353 K/mcL (140-400); Red Blood Count 3.56 M/mcL (4.19-5.50); Red Cell Distribution Width 15.7 % (11.5-14.5); Segmented Neutrophils % 57.8 %; White Blood Count 6.3 K/mcL (4.3-11.1)
[2021-10-18 05:06] LABS: BUN/Creatinine Ratio 31 (6-26); Blood Urea Nitrogen 18 mg/dL (6-20); Calcium 7.7 mg/dL (8.6-10.3); Carbon Dioxide 21 mEq/L (23-29); Chloride 105 mEq/L (98-107); Glucose 121 mg/dL (70-105); Osmolality,Calculated 285 (280-300); Potassium 3.5 mEq/L (3.5-5.1); Sodium 136 mEq/L (136-145); eGFR For African Americans > 60 (> 60); eGFR For Non-African Americans > 60 (> 60)
[2021-10-18] MEDS: *HR* Heparin 5,000 UNIT/ML VIAL SQ SCH ×2 (06:07→16:57)
[2021-10-18] MEDS: Cyanocobalamin (B-12) 1,000 MCG TABLET PO SCH (07:31)
[2021-10-18] MEDS: Acetaminophen 325 MG TABLET PO PRN ×2 (07:31→19:58)
[2021-10-18] MEDS: Chlorhexidine Rinse 15 ML MOUTHWASH MM SCH ×2 (07:32→19:58)
[2021-10-18] MEDS: Folic Acid 1 MG TABLET PO SCH (07:32)
[2021-10-18] MEDS ORDERED: Furosemide 20 MG/2 ML VIAL IVP SCH (09:00)
[2021-10-18] MEDS: Insulin LISPRO 300 UNITS/3 ML VIAL SUBQ SCH ×4 (09:27→19:52)
[2021-10-18] MEDS: Vancomycin 1,250 MG/262.5 ML IV.SOLN IVPB SCH ×2 (09:58→18:34)
[2021-10-18 10:24] LABS: Magnesium 1.8 mg/dL (1.6-2.6)
[2021-10-19] MEDS: hydrOXYzine pamoate 25 MG CAPSULE PO SCH ×3 (00:48→16:45)
[2021-10-19] MEDS: *HR* OxyCODONE Immed Rel 5 MG TABLET PO PRN ×3 (02:38→16:45)
[2021-10-19] MEDS: Vancomycin 1,250 MG/262.5 ML IV.SOLN IVPB SCH ×3 (02:39→19:04)
[2021-10-19] MEDS: *HR* FentaNYL (PF) 100 MCG/2 ML VIAL IVP PRN ×2 (05:20→10:06)
[2021-10-19] MEDS: *HR* Heparin 5,000 UNIT/ML VIAL SQ SCH ×2 (05:20→17:51)
[2021-10-19] MEDS: Insulin LISPRO 300 UNITS/3 ML VIAL SUBQ SCH ×4 (08:12→22:23)
[2021-10-19] MEDS: Cyanocobalamin (B-12) 1,000 MCG TABLET PO SCH (08:39)
[2021-10-19] MEDS: Chlorhexidine Rinse 15 ML MOUTHWASH MM SCH ×2 (08:39→22:12)
[2021-10-19] MEDS: Folic Acid 1 MG TABLET PO SCH (08:39)
[2021-10-19 15:46] LABS: Adenovirus Not Detected (Not Detect); Bordetella Pertussis Not Detected (Not Detect); Chlamydophila pneumoniae Not Detected (Not Detect); Coronavirus 229E Not Detected (Not Detect); Coronavirus HKU1 Not Detected (Not Detect); Coronavirus NL63 Not Detected (Not Detect); Coronavirus OC43 Not Detected (Not Detect); Human Metapneumovirus Not Detected (Not Detect); Human Rhinovirus/Enterovirus Not Detected (Not Detect); Influenza A Subtype 2009 H1 Not Detected (Not Detect); Influenza B Not Detected (Not Detect); Mycoplasma pneumoniae Not Detected (Not Detect); Parainfluenza Virus 1 Not Detected (Not Detect); Parainfluenza Virus 2 Not Detected (Not Detect); Parainfluenza Virus 3 Not Detected (Not Detect); Parainfluenza Virus 4 Not Detected (Not Detect); Respiratory Syncytial Virus Not Detected (Not Detect); SARS-CoV-2 Not Detected (Not Detect)
[2021-10-19 17:21] LABS: Basophils # 0.1 K/mcL (0.0-0.2); Basophils % 1.1 %; Eosinophils # 0.2 K/mcL (0.0-0.6); Hematocrit 30.5 % (37.5-50.1); Hemoglobin 9.7 g/dL (12.9-16.9); Immature Granulocytes % 0.6 % (0-4); Lymphocytes # 1.2 K/mcL (0.6-4.6); Lymphocytes % 18.3 %; Mean Corpuscular HGB Conc 31.8 g/dL (31.6-35.5); Mean Corpuscular Hemoglobin 28.5 pg (28.0-33.3); Mean Corpuscular Volume 89.7 fL (83.0-100.0); Monocytes % 14.6 %; Neutrophils # 4.1 K/mcL (1.6-8.9); Platelet Count 321 K/mcL (140-400); Red Cell Distribution Width 15.2 % (11.5-14.5); Segmented Neutrophils % 62.4 %; White Blood Count 6.6 K/mcL (4.3-11.1)
[2021-10-19 17:41] LABS: BUN/Creatinine Ratio 23 (6-26); Blood Urea Nitrogen 13 mg/dL (6-20); Calcium 7.8 mg/dL (8.6-10.3); Carbon Dioxide 22 mEq/L (23-29); Chloride 103 mEq/L (98-107); Glucose 101 mg/dL (70-105); Osmolality,Calculated 274 (280-300); Potassium 3.5 mEq/L (3.5-5.1); Sodium 132 mEq/L (136-145); eGFR For African Americans > 60 (> 60); eGFR For Non-African Americans > 60 (> 60)
[2021-10-19] MEDS ORDERED: Isovue-370 500 ML BOTTLE IVP ONE (18:12)
[2021-10-20] MEDS: *HR* OxyCODONE Immed Rel 5 MG TABLET PO PRN ×4 (01:02→21:10)
[2021-10-20] MEDS: hydrOXYzine pamoate 25 MG CAPSULE PO SCH ×3 (01:02→18:10)
[2021-10-20 02:41] LABS: Hemoglobin 9.3 g/dL (12.9-16.9)
[2021-10-20 02:43] LABS: Immature Platelets 5.5 % (1.1-6.1)
[2021-10-20 02:50] LABS: White Blood Count 6.1 K/mcL (4.3-11.1)
[2021-10-20 02:51] LABS: Basophils # 0.1 K/mcL (0.0-0.2); Basophils % 0.8 %; Eosinophils # 0.3 K/mcL (0.0-0.6); Eosinophils % 5.2 %; Hematocrit 28.6 % (37.5-50.1); Immature Granulocytes % 1.1 % (0-4); Lymphocytes # 1.1 K/mcL (0.6-4.6); Lymphocytes % 17.5 %; Mean Corpuscular HGB Conc 32.5 g/dL (31.6-35.5); Mean Corpuscular Hemoglobin 28.5 pg (28.0-33.3); Mean Corpuscular Volume 87.7 fL (83.0-100.0); Mean Platelet Volume 9.3 fL (9.4-12.4); Neutrophils # 3.6 K/mcL (1.6-8.9); Platelet Count 312 K/mcL (140-400); Red Blood Count 3.26 M/mcL (4.19-5.50); Red Cell Distribution Width 15.3 % (11.5-14.5); Segmented Neutrophils % 59.4 %
[2021-10-20 02:58] LABS: BUN/Creatinine Ratio 18 (6-26); Blood Urea Nitrogen 10 mg/dL (6-20); Calcium 8.1 mg/dL (8.6-10.3); Carbon Dioxide 22 mEq/L (23-29); Chloride 103 mEq/L (98-107); Glucose 100 mg/dL (70-105); Osmolality,Calculated 275 (280-300); Potassium 3.5 mEq/L (3.5-5.1); Sodium 133 mEq/L (136-145); eGFR For African Americans > 60 (> 60); eGFR For Non-African Americans > 60 (> 60)
[2021-10-20] MEDS: Vancomycin 1,250 MG/262.5 ML IV.SOLN IVPB SCH ×3 (05:08→18:09)
[2021-10-20] MEDS: *HR* Heparin 5,000 UNIT/ML VIAL SQ SCH ×2 (06:11→18:10)
[2021-10-20] MEDS: Folic Acid 1 MG TABLET PO SCH (08:10)
[2021-10-20] MEDS: Chlorhexidine Rinse 15 ML MOUTHWASH MM SCH ×2 (08:10→21:11)
[2021-10-20] MEDS: Cyanocobalamin (B-12) 1,000 MCG TABLET PO SCH (08:10)
[2021-10-20] MEDS: Acetaminophen 325 MG TABLET PO PRN (10:40)
[2021-10-20 16:01] LABS: Color,Urine Dark-Yellow (Yellow)
[2021-10-20 16:02] LABS: Bilirubin,Urine Negative (Negative); Clarity,Urine Ex.Turbid (Clear); Glucose,Urine (UA) Normal (Normal)
[2021-10-20 16:03] LABS: Blood,Urine Large (Negative); Ketones,Urine Negative (Negative); Leukocyte Esterase,Urine Trace (Negative); Nitrite,Urine Negative (Negative); Protein,Urine 70 mg/dL (Neg-Trace); Specific Gravity,Urine 1.023 (1.010-1.025); Urobilinogen,Urine Normal (Normal)
[2021-10-20 16:06] LABS: Amorphous Sediment,Urine Many per hpf (None-Few); Hyaline Casts,Urine Few per lpf (None Seen); RBC,Urine TNTC per hpf (0-3); Renal Epithelial Cells,Urine Few per hpf (None-Few); Squamous Epithelial Cell,Urine Few per hpf (None-Few); WBC,Urine 15-30 per hpf (0-3)
[2021-10-20 16:07] LABS: Bacteria,Urine Moderate per hpf (None-Few); Mucus,Urine Moderate per lpf (None-Few)
[2021-10-21] MEDS: Acetaminophen 325 MG TABLET PO PRN ×3 (00:18→18:42)
[2021-10-21] MEDS: hydrOXYzine pamoate 25 MG CAPSULE PO SCH ×3 (00:19→17:34)
[2021-10-21] MEDS: Vancomycin 1,250 MG/262.5 ML IV.SOLN IVPB SCH ×3 (02:18→17:35)
[2021-10-21 05:11] LABS: Hematocrit 31.3 % (37.5-50.1); Hemoglobin 10.4 g/dL (12.9-16.9); Mean Corpuscular HGB Conc 33.2 g/dL (31.6-35.5); Mean Corpuscular Hemoglobin 28.8 pg (28.0-33.3); Mean Corpuscular Volume 86.7 fL (83.0-100.0); Mean Platelet Volume 9.9 fL (9.4-12.4); Platelet Count 276 K/mcL (140-400); Red Blood Count 3.61 M/mcL (4.19-5.50); Red Cell Distribution Width 15.5 % (11.5-14.5); White Blood Count 7.2 K/mcL (4.3-11.1)
[2021-10-21 05:25] LABS: BUN/Creatinine Ratio 21 (6-26); Blood Urea Nitrogen 12 mg/dL (6-20); Calcium 7.8 mg/dL (8.6-10.3); Carbon Dioxide 22 mEq/L (23-29); Chloride 106 mEq/L (98-107); Glucose 84 mg/dL (70-105); Osmolality,Calculated 279 (280-300); Potassium 3.9 mEq/L (3.5-5.1); Sodium 135 mEq/L (136-145); eGFR For African Americans > 60 (> 60); eGFR For Non-African Americans > 60 (> 60)
[2021-10-21] MEDS: *HR* Heparin 5,000 UNIT/ML VIAL SQ SCH ×2 (06:05→17:34)
[2021-10-21] MEDS: *HR* OxyCODONE Immed Rel 5 MG TABLET PO PRN (06:34)
[2021-10-21] MEDS: Cyanocobalamin (B-12) 1,000 MCG TABLET PO SCH (08:01)
[2021-10-21 08:02] LABS: Eosinophils # 0.3 K/mcL (0.0-0.6); Lymphocytes # 1.7 K/mcL (0.6-4.6); Monocytes # 0.7 K/mcL (0.0-1.3); Neutrophils # 4.5 K/mcL (1.6-8.9)
[2021-10-21] MEDS: Folic Acid 1 MG TABLET PO SCH (08:02)
[2021-10-21] MEDS: Chlorhexidine Rinse 15 ML MOUTHWASH MM SCH ×2 (08:02→20:34)
[2021-10-21 08:03] LABS: Anisocytosis 2+ (Not Present); Platelet Estimate Normal (Normal)
[2021-10-22] MEDS: hydrOXYzine pamoate 25 MG CAPSULE PO SCH ×3 (00:39→16:33)
[2021-10-22] MEDS: Vancomycin 1,250 MG/262.5 ML IV.SOLN IVPB SCH ×3 (02:00→18:31)
[2021-10-22] MEDS: Acetaminophen 325 MG TABLET PO PRN ×3 (02:00→18:45)
[2021-10-22] MEDS: Ondansetron ODT 4 MG TAB.RAPDIS SL PRN (02:55)
[2021-10-22] MEDS: *HR* Heparin 5,000 UNIT/ML VIAL SQ SCH ×2 (05:18→18:31)
[2021-10-22] MEDS: Folic Acid 1 MG TABLET PO SCH (09:27)
[2021-10-22] MEDS: Cyanocobalamin (B-12) 1,000 MCG TABLET PO SCH (09:27)
[2021-10-22] MEDS: Chlorhexidine Rinse 15 ML MOUTHWASH MM SCH ×2 (09:28→20:30)
[2021-10-23] MEDS: Acetaminophen 325 MG TABLET PO PRN ×4 (01:11→23:23)
[2021-10-23] MEDS: hydrOXYzine pamoate 25 MG CAPSULE PO SCH ×3 (01:12→17:00)
[2021-10-23] MEDS: Vancomycin 1,250 MG/262.5 ML IV.SOLN IVPB SCH ×3 (03:24→17:32)
[2021-10-23] MEDS: *HR* Heparin 5,000 UNIT/ML VIAL SQ SCH ×2 (06:10→17:00)
[2021-10-23] MEDS: Chlorhexidine Rinse 15 ML MOUTHWASH MM SCH ×2 (08:40→20:41)
[2021-10-23] MEDS: Cyanocobalamin (B-12) 1,000 MCG TABLET PO SCH (08:40)
[2021-10-23] MEDS: Folic Acid 1 MG TABLET PO SCH (08:40)
[2021-10-24] MEDS: hydrOXYzine pamoate 25 MG CAPSULE PO SCH ×3 (01:59→17:00)
[2021-10-24] MEDS: Vancomycin 1,250 MG/262.5 ML IV.SOLN IVPB SCH (01:59)
[2021-10-24] MEDS: *HR* Heparin 5,000 UNIT/ML VIAL SQ SCH ×2 (06:11→17:00)
[2021-10-24] MEDS: Acetaminophen 325 MG TABLET PO PRN ×2 (08:22→17:52)
[2021-10-24] MEDS ORDERED: Ceftaroline Fosamil Acetate 600 MG in 0.9 % Sodium Chloride 50 ML IVPB SCH (09:00)
[2021-10-24] MEDS: Cyanocobalamin (B-12) 1,000 MCG TABLET PO SCH (10:06)
[2021-10-24] MEDS: Chlorhexidine Rinse 15 ML MOUTHWASH MM SCH ×2 (10:07→21:03)
[2021-10-24] MEDS: Folic Acid 1 MG TABLET PO SCH (10:07)
[2021-10-24] MEDS: DAPTOmycin 500 MG in 0.9 % Sodium Chloride 100 ML IVPB SCH (11:33)
[2021-10-25] MEDS: hydrOXYzine pamoate 25 MG CAPSULE PO SCH ×3 (00:06→16:45)
[2021-10-25] MEDS: Acetaminophen 325 MG TABLET PO PRN ×2 (05:29→16:45)
[2021-10-25] MEDS: *HR* Heparin 5,000 UNIT/ML VIAL SQ SCH ×2 (05:30→16:45)
[2021-10-25] MEDS: Folic Acid 1 MG TABLET PO SCH (09:25)
[2021-10-25] MEDS: Chlorhexidine Rinse 15 ML MOUTHWASH MM SCH ×2 (09:25→20:18)
[2021-10-25] MEDS: Cyanocobalamin (B-12) 1,000 MCG TABLET PO SCH (09:25)
[2021-10-25] MEDS: DAPTOmycin 500 MG in 0.9 % Sodium Chloride 100 ML IVPB SCH (11:07)
[2021-10-26] MEDS: hydrOXYzine pamoate 25 MG CAPSULE PO SCH ×3 (00:07→16:45)
[2021-10-26] MEDS: Acetaminophen 325 MG TABLET PO PRN ×3 (00:07→19:01)
[2021-10-26 05:37] LABS: Hematocrit 29.9 % (37.5-50.1); Hemoglobin 9.7 g/dL (12.9-16.9); Mean Corpuscular HGB Conc 32.4 g/dL (31.6-35.5); Mean Corpuscular Hemoglobin 28.3 pg (28.0-33.3); Mean Corpuscular Volume 87.2 fL (83.0-100.0); Mean Platelet Volume 9.7 fL (9.4-12.4); Platelet Count 255 K/mcL (140-400); Red Blood Count 3.43 M/mcL (4.19-5.50); Red Cell Distribution Width 15.6 % (11.5-14.5); White Blood Count 7.6 K/mcL (4.3-11.1)
[2021-10-26] MEDS: *HR* Heparin 5,000 UNIT/ML VIAL SQ SCH ×2 (05:47→16:45)
[2021-10-26 06:07] LABS: BUN/Creatinine Ratio 20 (6-26); Blood Urea Nitrogen 8 mg/dL (6-20); Calcium 7.8 mg/dL (8.6-10.3); Carbon Dioxide 24 mEq/L (23-29); Chloride 101 mEq/L (98-107); Creatine Kinase 15 Units/L (30-223); Glucose 82 mg/dL (70-105); Lactate Dehydrogenase 275 Units/L (140-271); Osmolality,Calculated 277 (280-300); Potassium 3.2 mEq/L (3.5-5.1); Sodium 135 mEq/L (136-145); Total Protein 6.7 g/dL (6.4-8.9); eGFR For African Americans > 60 (> 60); eGFR For Non-African Americans > 60 (> 60)
[2021-10-26] MEDS ORDERED: Potassium Chloride Elixir 20 MEQ/15 ML UDC PO ONE (06:39)
[2021-10-26] MEDS: Folic Acid 1 MG TABLET PO SCH (07:45)
[2021-10-26] MEDS: Cyanocobalamin (B-12) 1,000 MCG TABLET PO SCH (07:45)
[2021-10-26] MEDS: Chlorhexidine Rinse 15 ML MOUTHWASH MM SCH ×2 (07:45→20:16)
[2021-10-26] MEDS: DAPTOmycin 500 MG in 0.9 % Sodium Chloride 100 ML IVPB SCH (11:26)
[2021-10-26] MEDS: Vancomycin 1,250 MG/262.5 ML IV.SOLN IVPB SCH ×2 (14:41→22:51)
[2021-10-26 15:08] LABS: RBC,Pleural Fluid 47000 RBC/mcL
[2021-10-26 17:24] LABS: Appearance of Pleural Fl Bloody (Clear)
[2021-10-27] MEDS: hydrOXYzine pamoate 25 MG CAPSULE PO SCH ×2 (00:39→08:46)
[2021-10-27] MEDS: Acetaminophen 325 MG TABLET PO PRN ×4 (00:41→20:31)
[2021-10-27] MEDS: *HR* Heparin 5,000 UNIT/ML VIAL SQ SCH ×2 (05:01→18:07)
[2021-10-27] MEDS: Vancomycin 1,250 MG/262.5 ML IV.SOLN IVPB SCH ×3 (05:06→21:36)
[2021-10-27 06:01] LABS: Hemoglobin 8.9 g/dL (12.9-16.9); Mean Corpuscular HGB Conc 31.8 g/dL (31.6-35.5); Mean Corpuscular Volume 88.1 fL (83.0-100.0); Mean Platelet Volume 9.7 fL (9.4-12.4); Platelet Count 221 K/mcL (140-400); Red Blood Count 3.18 M/mcL (4.19-5.50); Red Cell Distribution Width 15.8 % (11.5-14.5); White Blood Count 5.5 K/mcL (4.3-11.1)
[2021-10-27 06:27] LABS: BUN/Creatinine Ratio 14 (6-26); Blood Urea Nitrogen 8 mg/dL (6-20); Calcium 7.6 mg/dL (8.6-10.3); Carbon Dioxide 23 mEq/L (23-29); Chloride 98 mEq/L (98-107); Glucose 87 mg/dL (70-105); Osmolality,Calculated 266 (280-300); Potassium 3.5 mEq/L (3.5-5.1); Sodium 129 mEq/L (136-145); eGFR For African Americans > 60 (> 60); eGFR For Non-African Americans > 60 (> 60)
[2021-10-27] MEDS: Folic Acid 1 MG TABLET PO SCH (08:46)
[2021-10-27] MEDS: Chlorhexidine Rinse 15 ML MOUTHWASH MM SCH (08:46)
[2021-10-27] MEDS: Cyanocobalamin (B-12) 1,000 MCG TABLET PO SCH (08:46)
[2021-10-27 10:52] LABS: Amphetamine Screen,Urine Negative ng/mL (Cutoff=1000); Barbiturate Screen,Urine Negative ng/mL (Cutoff=200); Benzodiazepines Screen,Urine Negative ng/mL (Cutoff=200); Cannabinoid Screen,Urine Negative ng/mL (Cutoff = 50); Cocaine Screen,Urine Negative ng/mL (Cutoff= 300); Opiate Screen,Urine Negative ng/mL (Cutoff=300); Phencyclidine Screen,Urine Negative ng/mL (Cutoff=25)
[2021-10-27] MEDS ORDERED: Isovue-370 500 ML BOTTLE IVP ONE (11:00)
[2021-10-27] MEDS ORDERED: 0.9 % Sodium Chloride 500 ML IVC ONE (11:00)
[2021-10-27] MEDS ORDERED: Acetaminophen 325 MG TABLET PO ONE (21:45)
[2021-10-28] MEDS: Acetaminophen 325 MG TABLET PO PRN ×3 (03:41→22:17)
[2021-10-28 04:03] LABS: Hematocrit 24.6 % (37.5-50.1); Hemoglobin 8.2 g/dL (12.9-16.9); Mean Corpuscular HGB Conc 33.3 g/dL (31.6-35.5); Mean Corpuscular Hemoglobin 28.8 pg (28.0-33.3); Mean Corpuscular Volume 86.3 fL (83.0-100.0); Platelet Count 165 K/mcL (140-400); Red Blood Count 2.85 M/mcL (4.19-5.50); Red Cell Distribution Width 15.9 % (11.5-14.5); White Blood Count 5.7 K/mcL (4.3-11.1)
[2021-10-28 04:22] LABS: BUN/Creatinine Ratio 20 (6-26); Blood Urea Nitrogen 11 mg/dL (6-20); Calcium 7.2 mg/dL (8.6-10.3); Carbon Dioxide 22 mEq/L (23-29); Chloride 98 mEq/L (98-107); Glucose 93 mg/dL (70-105); Magnesium 1.5 mg/dL (1.6-2.6); Osmolality,Calculated 261 (280-300); Phosphorous 2.2 mg/dL (2.7-4.5); Potassium 3.3 mEq/L (3.5-5.1); Sodium 126 mEq/L (136-145); eGFR For African Americans > 60 (> 60); eGFR For Non-African Americans > 60 (> 60)
[2021-10-28] MEDS: *HR* Heparin 5,000 UNIT/ML VIAL SQ SCH ×2 (06:23→18:07)
[2021-10-28] MEDS: Vancomycin 1,250 MG/262.5 ML IV.SOLN IVPB SCH ×3 (07:53→22:34)
[2021-10-28] MEDS: Cyanocobalamin (B-12) 1,000 MCG TABLET PO SCH (07:53)
[2021-10-28] MEDS: Folic Acid 1 MG TABLET PO SCH (07:53)
[2021-10-28] MEDS: Ketorolac 30 MG/ML VIAL IVP PRN ×2 (15:35→22:17)
[2021-10-28] MEDS: Ondansetron ODT 4 MG TAB.RAPDIS SL PRN (22:16)
[2021-10-28] MEDS ORDERED: Ketorolac 30 MG/ML VIAL IVP ONE (22:46)
[2021-10-29] MEDS ORDERED: *HR* OxyCODONE Immed Rel 5 MG TABLET PO ONE (02:29)
[2021-10-29] MEDS: Vancomycin 1,250 MG/262.5 ML IV.SOLN IVPB SCH (02:55)
[2021-10-29 04:33] LABS: BUN/Creatinine Ratio 26 (6-26); Blood Urea Nitrogen 19 mg/dL (6-20); Calcium 7.5 mg/dL (8.6-10.3); Carbon Dioxide 22 mEq/L (23-29); Chloride 100 mEq/L (98-107); Glucose 87 mg/dL (70-105); Osmolality,Calculated 268 (280-300); Phosphorous 2.7 mg/dL (2.7-4.5); Potassium 4.4 mEq/L (3.5-5.1); Sodium 128 mEq/L (136-145); eGFR For African Americans > 60 (> 60); eGFR For Non-African Americans > 60 (> 60)
[2021-10-29] MEDS: *HR* Heparin 5,000 UNIT/ML VIAL SQ SCH ×2 (06:30→16:23)
[2021-10-29] MEDS: Cyanocobalamin (B-12) 1,000 MCG TABLET PO SCH (09:22)
[2021-10-29] MEDS: Folic Acid 1 MG TABLET PO SCH (09:22)
[2021-10-29] MEDS: Ketorolac 30 MG/ML VIAL IVP PRN ×2 (10:47→20:51)
[2021-10-29] MEDS ORDERED: Vancomycin 1,250 MG/262.5 ML IV.SOLN IVPB SCH (11:00)
[2021-10-29] MEDS: Acetaminophen 325 MG TABLET PO PRN ×2 (16:20→20:50)
[2021-10-29] MEDS: Ceftaroline Fosamil Acetate 600 MG in 0.9 % Sodium Chloride 50 ML IVPB SCH (17:56)
[2021-10-29] MEDS: Ondansetron ODT 4 MG TAB.RAPDIS SL PRN (20:51)
[2021-10-30] MEDS: Ceftaroline Fosamil Acetate 600 MG in 0.9 % Sodium Chloride 50 ML IVPB SCH ×3 (02:29→17:21)
[2021-10-30] MEDS: Acetaminophen 325 MG TABLET PO PRN (02:40)
[2021-10-30] MEDS: Cyanocobalamin (B-12) 1,000 MCG TABLET PO SCH (09:35)
[2021-10-30] MEDS: Folic Acid 1 MG TABLET PO SCH (09:35)
[2021-10-30] MEDS: *HR* Heparin 5,000 UNIT/ML VIAL SQ SCH ×2 (09:35→20:09)
[2021-10-30] MEDS: Ketorolac 30 MG/ML VIAL IVP PRN (20:07)
[2021-10-30] MEDS: Ondansetron ODT 4 MG TAB.RAPDIS SL PRN (20:08)
[2021-10-31] MEDS: Ceftaroline Fosamil Acetate 600 MG in 0.9 % Sodium Chloride 50 ML IVPB SCH ×3 (02:14→16:10)
[2021-10-31] MEDS: Acetaminophen 325 MG TABLET PO PRN ×2 (02:16→10:07)
[2021-10-31 02:53] LABS: Bacteria,Urine Many per hpf (None-Few); Bilirubin,Urine Small (Negative); Blood,Urine Moderate (Negative); Clarity,Urine Ex.Turbid (Clear); Color,Urine Dark-Orange (Yellow); Glucose,Urine (UA) Normal (Normal); Ketones,Urine Negative (Negative); Leukocyte Esterase,Urine Large (Negative); Mucus,Urine Many per lpf (None-Few); Nitrite,Urine Negative (Negative); Protein,Urine >=600 mg/dL (Neg-Trace); RBC,Urine 50-100 per hpf (0-3); Specific Gravity,Urine > 1.030 (1.010-1.025); Urobilinogen,Urine Normal (Normal); WBC,Urine TNTC per hpf (0-3)
[2021-10-31 02:59] LABS: BUN/Creatinine Ratio 21 (6-26); Blood Urea Nitrogen 20 mg/dL (6-20); Calcium 7.5 mg/dL (8.6-10.3); Carbon Dioxide 22 mEq/L (23-29); Chloride 100 mEq/L (98-107); Glucose 75 mg/dL (70-105); Osmolality,Calculated 267 (280-300); Potassium 4.5 mEq/L (3.5-5.1); Sodium 128 mEq/L (136-145); eGFR For African Americans > 60 (> 60); eGFR For Non-African Americans > 60 (> 60)
[2021-10-31] MEDS: *HR* Heparin 5,000 UNIT/ML VIAL SQ SCH ×2 (05:05→19:55)
[2021-10-31 07:58] LABS: Fluid Source for Cholesterol PLEURAL FLUID
[2021-10-31] MEDS: Folic Acid 1 MG TABLET PO SCH (10:06)
[2021-10-31] MEDS: Cyanocobalamin (B-12) 1,000 MCG TABLET PO SCH (10:07)
[2021-10-31 10:40] LABS: Cholesterol,Body Fluid 49 mg/dL
[2021-10-31] MEDS: Ketorolac 30 MG/ML VIAL IVP PRN (15:58)
[2021-11-01] MEDS: Ceftaroline Fosamil Acetate 600 MG in 0.9 % Sodium Chloride 50 ML IVPB SCH ×3 (00:18→15:34)
[2021-11-01] MEDS: Ketorolac 30 MG/ML VIAL IVP PRN ×3 (01:25→22:13)
[2021-11-01] MEDS: *HR* Heparin 5,000 UNIT/ML VIAL SQ SCH ×2 (05:41→21:29)
[2021-11-01] MEDS: Folic Acid 1 MG TABLET PO SCH (08:52)
[2021-11-01] MEDS: Cyanocobalamin (B-12) 1,000 MCG TABLET PO SCH (08:54)
[2021-11-01] MEDS: Acetaminophen 325 MG TABLET PO PRN ×2 (10:14→14:19)
[2021-11-02] MEDS: Ceftaroline Fosamil Acetate 600 MG in 0.9 % Sodium Chloride 50 ML IVPB SCH ×3 (02:00→15:30)
[2021-11-02] MEDS: Acetaminophen 325 MG TABLET PO PRN (04:48)
[2021-11-02] MEDS: *HR* Heparin 5,000 UNIT/ML VIAL SQ SCH ×2 (04:48→14:15)
[2021-11-02] MEDS: Ondansetron ODT 4 MG TAB.RAPDIS SL PRN (04:50)
[2021-11-02] MEDS: Cyanocobalamin (B-12) 1,000 MCG TABLET PO SCH (08:35)
[2021-11-02] MEDS: Folic Acid 1 MG TABLET PO SCH (08:35)
[2021-11-03] MEDS: Ceftaroline Fosamil Acetate 600 MG in 0.9 % Sodium Chloride 50 ML IVPB SCH ×4 (00:29→23:30)
[2021-11-03] MEDS: *HR* Heparin 5,000 UNIT/ML VIAL SQ SCH ×2 (05:58→16:09)
[2021-11-03] MEDS: Cyanocobalamin (B-12) 1,000 MCG TABLET PO SCH (08:42)
[2021-11-03] MEDS: Acetaminophen 325 MG TABLET PO PRN (16:16)
[2021-11-04] MEDS: *HR* Heparin 5,000 UNIT/ML VIAL SQ SCH ×2 (04:03→16:26)
[2021-11-04] MEDS: Folic Acid 1 MG TABLET PO SCH (09:56)
[2021-11-04] MEDS: Cyanocobalamin (B-12) 1,000 MCG TABLET PO SCH (09:56)
[2021-11-04] MEDS: Ceftaroline Fosamil Acetate 600 MG in 0.9 % Sodium Chloride 50 ML IVPB SCH ×3 (09:58→23:22)
[2021-11-04] MEDS: Ondansetron ODT 4 MG TAB.RAPDIS SL PRN (12:35)
[2021-11-05] MEDS: *HR* Heparin 5,000 UNIT/ML VIAL SQ SCH ×2 (05:36→17:46)
[2021-11-05] MEDS: Folic Acid 1 MG TABLET PO SCH (10:35)
[2021-11-05] MEDS: Cyanocobalamin (B-12) 1,000 MCG TABLET PO SCH (10:35)
[2021-11-05] MEDS: Ceftaroline Fosamil Acetate 600 MG in 0.9 % Sodium Chloride 50 ML IVPB SCH ×2 (10:35→17:45)
[2021-11-05] MEDS: Acetaminophen 325 MG TABLET PO PRN ×3 (10:51→21:44)
[2021-11-06] MEDS: Ceftaroline Fosamil Acetate 600 MG in 0.9 % Sodium Chloride 50 ML IVPB SCH ×3 (00:57→16:57)
[2021-11-06] MEDS: Acetaminophen 325 MG TABLET PO PRN ×3 (04:04→21:03)
[2021-11-06] MEDS: *HR* Heparin 5,000 UNIT/ML VIAL SQ SCH ×2 (05:48→17:00)
[2021-11-06] MEDS: Cyanocobalamin (B-12) 1,000 MCG TABLET PO SCH (08:39)
[2021-11-06] MEDS: Folic Acid 1 MG TABLET PO SCH (08:39)
[2021-11-07] MEDS: Ceftaroline Fosamil Acetate 600 MG in 0.9 % Sodium Chloride 50 ML IVPB SCH ×4 (00:37→23:10)
[2021-11-07] MEDS: *HR* Heparin 5,000 UNIT/ML VIAL SQ SCH ×2 (04:54→16:34)
[2021-11-07] MEDS: Folic Acid 1 MG TABLET PO SCH (08:02)
[2021-11-07] MEDS: Cyanocobalamin (B-12) 1,000 MCG TABLET PO SCH (08:02)
[2021-11-07] MEDS: Acetaminophen 325 MG TABLET PO PRN ×2 (10:56→19:20)
[2021-11-07] MEDS: Nicotine 21 MG PATCH.TD24 TD SCH (15:19)
[2021-11-07] MEDS ORDERED: Ketorolac 30 MG/ML VIAL IVP ONE (23:20)
[2021-11-08] MEDS ORDERED: Ketorolac 30 MG/ML VIAL IVP ONE (01:20)
[2021-11-08] MEDS: *HR* Heparin 5,000 UNIT/ML VIAL SQ SCH ×2 (05:44→16:33)
[2021-11-08] MEDS: Cyanocobalamin (B-12) 1,000 MCG TABLET PO SCH (10:26)
[2021-11-08] MEDS: Acetaminophen 325 MG TABLET PO PRN (10:27)
[2021-11-08] MEDS: Folic Acid 1 MG TABLET PO SCH (10:27)
[2021-11-08] MEDS: Nicotine 21 MG PATCH.TD24 TD SCH (10:30)
[2021-11-08] MEDS: Ceftaroline Fosamil Acetate 600 MG in 0.9 % Sodium Chloride 50 ML IVPB SCH ×2 (10:31→16:33)
[2021-11-08] MEDS ORDERED: Furosemide 20 MG/2 ML VIAL IVP ONE (10:52)
[2021-11-08 17:25] LABS: Basophils # 0.3 K/mcL (0.0-0.2); Basophils % 2.4 %; Eosinophils # 1.6 K/mcL (0.0-0.6); Eosinophils % 13.5 %; Hematocrit 29.6 % (37.5-50.1); Hemoglobin 9.3 g/dL (12.9-16.9); Immature Granulocytes % 1.5 % (0-4); Mean Corpuscular HGB Conc 31.4 g/dL (31.6-35.5); Mean Corpuscular Hemoglobin 29.5 pg (28.0-33.3); Mean Platelet Volume 10.3 fL (9.4-12.4); Monocytes % 24.3 %; Neutrophils # 3.8 K/mcL (1.6-8.9); Platelet Count 416 K/mcL (140-400); Red Blood Count 3.15 M/mcL (4.19-5.50); Red Cell Distribution Width 20.4 % (11.5-14.5); Segmented Neutrophils % 32.3 %; White Blood Count 11.7 K/mcL (4.3-11.1)
[2021-11-08 17:31] LABS: Monocytes # 2.8 K/mcL (0.0-1.3)
[2021-11-08 18:09] LABS: Large Platelets Present (Not Present); Reactive Lymphocytes Present (Not Present); Smudge Cells Present (Not Present)
[2021-11-08 18:26] LABS: BUN/Creatinine Ratio 28 (6-26); Blood Urea Nitrogen 22 mg/dL (6-20); Calcium 7.7 mg/dL (8.6-10.3); Carbon Dioxide 21 mEq/L (23-29); Chloride 108 mEq/L (98-107); Glucose 108 mg/dL (70-105); Osmolality,Calculated 288 (280-300); Potassium 3.7 mEq/L (3.5-5.1); Sodium 137 mEq/L (136-145); eGFR For African Americans > 60 (> 60); eGFR For Non-African Americans > 60 (> 60)
[2021-11-08] MEDS: Ketorolac 30 MG/ML VIAL IVP PRN (20:26)
[2021-11-09] MEDS: Ceftaroline Fosamil Acetate 600 MG in 0.9 % Sodium Chloride 50 ML IVPB SCH ×3 (01:12→15:55)
[2021-11-09] MEDS: *HR* Heparin 5,000 UNIT/ML VIAL SQ SCH ×2 (05:08→15:40)
[2021-11-09] MEDS: Ketorolac 30 MG/ML VIAL IVP PRN ×2 (07:12→15:22)
[2021-11-09] MEDS: Nicotine 21 MG PATCH.TD24 TD SCH (08:58)
[2021-11-09] MEDS: Cyanocobalamin (B-12) 1,000 MCG TABLET PO SCH (08:59)
[2021-11-09] MEDS: Folic Acid 1 MG TABLET PO SCH (08:59)
[2021-11-10] MEDS: Ceftaroline Fosamil Acetate 600 MG in 0.9 % Sodium Chloride 50 ML IVPB SCH ×3 (00:24→15:21)
[2021-11-10] MEDS: Ketorolac 30 MG/ML VIAL IVP PRN ×4 (00:25→22:03)
[2021-11-10] MEDS: *HR* Heparin 5,000 UNIT/ML VIAL SQ SCH ×2 (05:17→18:23)
[2021-11-10] MEDS: Cyanocobalamin (B-12) 1,000 MCG TABLET PO SCH (08:40)
[2021-11-10] MEDS: Folic Acid 1 MG TABLET PO SCH (08:41)
[2021-11-10] MEDS: Nicotine 21 MG PATCH.TD24 TD SCH (08:43)
[2021-11-11] MEDS: Ceftaroline Fosamil Acetate 600 MG in 0.9 % Sodium Chloride 50 ML IVPB SCH ×2 (00:34→10:30)
[2021-11-11 02:09] LABS: Amphetamine Screen,Urine Negative ng/mL (Cutoff=1000); Barbiturate Screen,Urine Negative ng/mL (Cutoff=200); Benzodiazepines Screen,Urine Negative ng/mL (Cutoff=200); Cannabinoid Screen,Urine Negative ng/mL (Cutoff = 50); Cocaine Screen,Urine Negative ng/mL (Cutoff= 300); Opiate Screen,Urine Negative ng/mL (Cutoff=300); Phencyclidine Screen,Urine Negative ng/mL (Cutoff=25)
[2021-11-11] MEDS: *HR* Heparin 5,000 UNIT/ML VIAL SQ SCH (05:09)
[2021-11-11 07:55] VITALS: BP 122/71; PULSE 83; TEMP 97.6; O2SAT 96
[2021-11-11] MEDS: Folic Acid 1 MG TABLET PO SCH (08:11)
[2021-11-11] MEDS: Cyanocobalamin (B-12) 1,000 MCG TABLET PO SCH (08:11)
[2021-11-11] MEDS: Nicotine 21 MG PATCH.TD24 TD SCH (08:11)
== END 2021-11-11 11:50 | DRG 710 ==
LOC: 3NENU → SUATTDRO 23:40 → 2NNU 10-01 06:41 → 2NENU 10-04 13:29 → ICNU 10-11 17:27 → 2NNU 10-13 11:57 → 2NENU 10-24 13:01
PROVIDERS: ADMIT Internal Medicine; ATTEND Internal Medicine